=== PATIENT | female | born 1965 | race Caucasian/White ===

== ENCOUNTER 2021-06-21 04:07 | Inpatient (IN) | payer OTHER ==
[2021-06-16 15:15] VITALS: BMI 29.9
[2021-06-21] MEDS ORDERED: ROCURONIUM BROMIDE 50 MG/5 ML SYRINGE ONE ×3 (07:45→14:14)
[2021-06-21] MEDS ORDERED: SUCCINYLCHOLINE CHLORIDE 200 MG/10 ML SYRINGE ONE (07:45)
[2021-06-21] MEDS ORDERED: PROPOFOL 20 ML ONE ×3 (07:45→11:16)
[2021-06-21] MEDS ORDERED: LIDOCAINE HCL/PF 2% SDV 5ML VIAL ONE (07:46)
[2021-06-21] MEDS ORDERED: BUPIVACAINE HCL/PF 0.25% (2.5MG/ML) 10 ML VIAL ONE (08:03)
[2021-06-21] MEDS ORDERED: ISOSULFAN BLUE 50 MG/5 ML VIAL SQ ONE (08:04)
[2021-06-21] MEDS ORDERED: BUPIVACAINE LIPOSOME/PF (EXPAREL) 266 MG/20 ML VIAL ONE (08:04)
[2021-06-21] MEDS ORDERED: HEPARIN NA (PORCINE) 5,000 UNITS/ML 1ML VIAL ONE (08:04)
[2021-06-21] MEDS ORDERED: PAPAVERINE HCL 30 MG/1 ML 10 ML VIAL NR ONE (08:04)
[2021-06-21] MEDS ORDERED: KETAMINE HCL 200 MG/20 ML VIAL ONE (10:56)
[2021-06-21] MEDS ORDERED: MIDAZOLAM HCL 2 MG/2 ML SINGLE DOSE VIAL ONE ×2 (10:56→16:48)
[2021-06-21] MEDS ORDERED: ceFAZolin SODIUM 1 GM VIAL IVPB ONE ×2 (11:05→11:10)
[2021-06-21] MEDS ORDERED: DEXMEDETOMIDINE HCL 200 MCG/2 ML IVPB ONE (11:08)
[2021-06-21] MEDS ORDERED: HYDROmorphone HCl 2 MG/ML VIAL ONE (11:13)
[2021-06-21] MEDS ORDERED: ACETAMINOPHEN INJECTION 100 ML IVPB ONE (13:10)
[2021-06-21] MEDS ORDERED: ePHEDrine SULFATE 50 MG/1 ML AMPULE ONE (14:48)
[2021-06-21] MEDS ORDERED: BUPIVACAINE LIPOSOME/PF (EXPAREL) 266 MG/20 ML VIAL NR ONE (15:31)
[2021-06-21] MEDS ORDERED: BUPIVACAINE HCL/PF 0.25% (2.5MG/ML) 10 ML VIAL IJ ONE (15:31)
[2021-06-21] MEDS ORDERED: DEXTROSE 5%-0.45% SALINE 1,000 ML IV SCH (17:15)
[2021-06-21] MEDS ORDERED: ALBUMIN HUMAN 5% 500 ML IV SOLUTION IV ONE ×2 (18:08→18:11)
[2021-06-21] MEDS ORDERED: ONDANSETRON 4 MG/2 ML VIAL IVPUSH PRN (18:12)
[2021-06-21] MEDS ORDERED: HYDROmorphone HCl 2 MG/ML VIAL IVPUSH PRN ×2 (18:12→18:18)
[2021-06-21] MEDS ORDERED: HYDROmorphone *PCA* 10MG/50ML DISP.SYRIN PCA SCH (18:15)
[2021-06-21] MEDS ORDERED: ACETAMINOPHEN 1000 MG/100 ML BAG IVPB PRN (18:16)
[2021-06-21] MEDS ORDERED: GLYCOPYRROLATE 0.2 MG/1 ML VIAL ONE (18:34)
[2021-06-21] MEDS ORDERED: NEOSTIGMINE METHYLSULFATE 0.5 MG/1 ML - 10 ML MDV ONE (18:34)
[2021-06-21] MEDS ORDERED: CEFAZOLIN 1 GM in DEXTROSE 5%-WATER - 50 ML IVPB SCH (19:00)
[2021-06-21] MEDS: HYDROmorphone *PCA* 10MG/50ML DISP.SYRIN PCA SCH (19:00)
[2021-06-21] MEDS: ceFAZolin 2 GRAM PREMIX BAG IVPB ONE ×2 (19:30→20:01)
[2021-06-21] MEDS ORDERED: ceFAZolin SODIUM 1 GM VIAL ONE (20:09)
[2021-06-21] MEDS ORDERED: ONDANSETRON 4 MG/2 ML VIAL ONE (20:41)
[2021-06-21] MEDS: LACTATED RINGERS SOLUTION 1,000 ML IV SCH (21:00)
[2021-06-21] MEDS ORDERED: PROMETHAZINE HCL 25 MG/1 ML VIAL IVPUSH PRN (21:06)
[2021-06-21] MEDS ORDERED: PROMETHAZINE HCL 25 MG/1 ML VIAL ONE (21:10)
[2021-06-21] MEDS: CHLORHEXIDINE GLUCONATE 4% CLEANSER FOR DECOLONIZATION TP SCH (22:55)
[2021-06-21] MEDS: MUPIROCIN 2% TOPICAL OINTMENT FOR DECOLONIZATION NS SCH (22:55)
[2021-06-21] MEDS: DOCUSATE SODIUM 100 MG CAPSULE (FP) PO SCH (22:55)
[2021-06-22] MEDS ORDERED: ceFAZolin SODIUM 1 GM VIAL ONE ×3 (04:15→20:07)
[2021-06-22] MEDS ORDERED: DEXTROSE 5%-WATER - 50 ML IVPB ONE ×3 (04:16→20:08)
[2021-06-22] MEDS: CEFAZOLIN 1 GM in DEXTROSE 5%-WATER - 50 ML IVPB SCH ×3 (04:35→20:19)
[2021-06-22 07:33] LABS: BASO % 0.1 % (0-2.0); HEMATOCRIT 29.8 % (32.4-45.2); HEMOGLOBIN 9.6 GM/dL (10.7-15.3); LYMPH % 6.7 % (8-40); MCH 26.4 pg (25.7-33.7); MCHC 32.3 g/dl (32.0-36.0); MEAN CELL VOLUME 81.8 fl (80-96); MEAN PLT VOLUME 10.9 fl (7.5-11.1); MONO % 6.4 % (3.8-10.2); NEUT % 86.8 % (42.8-82.8); PLATELET COUNT 190 10^3/uL (134-434); RBC 3.64 M/mm3 (3.60-5.2); RDW 13.9 % (11.6-15.6); WHITE BLOOD COUNT 11.2 K/mm3 (4.0-10.0)
[2021-06-22 07:34] LABS: BLOOD UREA NITROGEN 13.2 mg/dL (7-18); CALCIUM 7.3 mg/dL (8.5-10.1); MAGNESIUM 1.6 mg/dL (1.8-2.4)
[2021-06-22 07:35] LABS: ALBUMIN 2.6 g/dl (3.4-5.0)
[2021-06-22 07:39] LABS: BILIRUBIN,TOTAL 0.5 mg/dL (0.2-1); CREATININE 0.9 mg/dL (0.55-1.3); TOT PROT 5.2 g/dl (6.4-8.2)
[2021-06-22] MEDS: INSULIN SLIDING SCALE (NOVOLOG) 1 VIAL SQ SCH ×4 (07:40→22:15)
[2021-06-22] MEDS ORDERED: DEXTROSE 5%-0.45% SALINE 1,000 ML IV SCH (08:00)
[2021-06-22] MEDS: ASPIRIN 325 MG TABLET PO SCH (10:05)
[2021-06-22] MEDS: ENOXAPARIN NA (PORCINE) 40 MG/0.4 ML DISP.SYRIN SQ SCH (10:05)
[2021-06-22] MEDS: MUPIROCIN 2% TOPICAL OINTMENT FOR DECOLONIZATION NS SCH ×2 (10:06→21:36)
[2021-06-22] MEDS: LACTATED RINGERS SOLUTION 1,000 ML IV SCH ×2 (10:06→19:15)
[2021-06-22] MEDS: DOCUSATE SODIUM 100 MG CAPSULE (FP) PO SCH ×2 (10:06→21:36)
[2021-06-22] MEDS ORDERED: ONDANSETRON 4 MG/2 ML VIAL IVPUSH ONE (11:36)
[2021-06-22] MEDS ORDERED: MAGNESIUM SULFATE IN WATER 2 GM/50 ML IVPB IVPB ONE (13:39)
[2021-06-22] MEDS: HYDROmorphone *PCA* 10MG/50ML DISP.SYRIN PCA SCH (19:15)
[2021-06-22] MEDS: CHLORHEXIDINE GLUCONATE 4% CLEANSER FOR DECOLONIZATION TP SCH (21:36)
[2021-06-23] MEDS: HYDROmorphone *PCA* 10MG/50ML DISP.SYRIN PCA SCH (02:20)
[2021-06-23] MEDS: INSULIN SLIDING SCALE (NOVOLOG) 1 VIAL SQ SCH ×4 (07:08→21:28)
[2021-06-23 07:22] LABS: HEMATOCRIT 26.5 % (32.4-45.2); HEMOGLOBIN 8.7 GM/dL (10.7-15.3); MCH 26.9 pg (25.7-33.7); MCHC 32.7 g/dl (32.0-36.0); MEAN CELL VOLUME 82.1 fl (80-96); MEAN PLT VOLUME 10.2 fl (7.5-11.1); PLATELET COUNT 148 10^3/uL (134-434); RBC 3.23 M/mm3 (3.60-5.2); RDW 13.8 % (11.6-15.6); WHITE BLOOD COUNT 8.3 K/mm3 (4.0-10.0)
[2021-06-23 07:50] LABS: ALBUMIN 2.5 g/dl (3.4-5.0); BLOOD UREA NITROGEN 8.1 mg/dL (7-18); CALCIUM 7.5 mg/dL (8.5-10.1)
[2021-06-23 07:53] LABS: CREATININE 0.6 mg/dL (0.55-1.3)
[2021-06-23 07:55] LABS: BILIRUBIN,TOTAL 0.7 mg/dL (0.2-1); TOT PROT 5.2 g/dl (6.4-8.2)
[2021-06-23] MEDS: ASPIRIN 325 MG TABLET PO SCH (09:27)
[2021-06-23] MEDS: MUPIROCIN 2% TOPICAL OINTMENT FOR DECOLONIZATION NS SCH ×2 (09:27→21:28)
[2021-06-23] MEDS: DOCUSATE SODIUM 100 MG CAPSULE (FP) PO SCH ×2 (09:28→21:28)
[2021-06-23] MEDS: ENOXAPARIN NA (PORCINE) 40 MG/0.4 ML DISP.SYRIN SQ SCH (09:28)
[2021-06-23] MEDS ORDERED: metFORMIN HCL 500 MG TABLET (FP) PO SCH (10:00)
[2021-06-23] MEDS ORDERED: PATIENT'S OWN MEDICATION (NON-FORMULARY) (Sitagliptin Phos/Metformin Hcl [Janumet 50-500 M PO SCH (10:00)
[2021-06-23] MEDS: ATENOLOL 50 MG TABLET (FP) PO SCH (11:55)
[2021-06-23] MEDS: HYDROCHLOROTHIAZIDE 12.5 MG CAPSULE (FP) PO SCH (11:55)
[2021-06-23] MEDS: sitaGLIPtin PHOSPHATE 50 MG TABLET PO SCH (11:55)
[2021-06-23] MEDS: diazePAM 5 MG TABLET PO PRN ×2 (13:34→21:27)
[2021-06-23] MEDS: ONDANSETRON 4 MG/2 ML VIAL IVPUSH PRN (13:34)
[2021-06-23] MEDS ORDERED: LACTATED RINGERS SOLUTION 1,000 ML/1,000 ML INFUS.BAG IV STA (14:47)
[2021-06-23] MEDS: LACTATED RINGERS SOLUTION 1,000 ML IV SCH (20:22)
[2021-06-23] MEDS: oxyCODONE HCL 5 MG TABLET PO PRN (21:27)
[2021-06-23] MEDS: CHLORHEXIDINE GLUCONATE 4% CLEANSER FOR DECOLONIZATION TP SCH (21:28)
[2021-06-24] MEDS: oxyCODONE HCL 5 MG TABLET PO PRN ×5 (02:11→22:01)
[2021-06-24] MEDS: diazePAM 5 MG TABLET PO PRN ×2 (06:12→22:02)
[2021-06-24] MEDS: sitaGLIPtin PHOSPHATE 50 MG TABLET PO SCH (06:12)
[2021-06-24] MEDS: LEVOTHYROXINE NA 88 MCG TABLET (FP) PO SCH (06:13)
[2021-06-24] MEDS: INSULIN SLIDING SCALE (NOVOLOG) 1 VIAL SQ SCH ×4 (06:13→22:02)
[2021-06-24 06:59] LABS: HEMATOCRIT 22.4 % (32.4-45.2); HEMOGLOBIN 7.6 GM/dL (10.7-15.3); MCH 27.4 pg (25.7-33.7); MCHC 33.9 g/dl (32.0-36.0); MEAN CELL VOLUME 80.8 fl (80-96); MEAN PLT VOLUME 9.9 fl (7.5-11.1); PLATELET COUNT 139 10^3/uL (134-434); RBC 2.78 M/mm3 (3.60-5.2); RDW 13.5 % (11.6-15.6); WHITE BLOOD COUNT 7.4 K/mm3 (4.0-10.0)
[2021-06-24 07:26] LABS: CALCIUM 7.1 mg/dL (8.5-10.1)
[2021-06-24 07:27] LABS: BLOOD UREA NITROGEN 5.8 mg/dL (7-18)
[2021-06-24 07:30] LABS: CREATININE 0.4 mg/dL (0.55-1.3)
[2021-06-24] MEDS: ENOXAPARIN NA (PORCINE) 40 MG/0.4 ML DISP.SYRIN SQ SCH (09:46)
[2021-06-24] MEDS: ONDANSETRON 4 MG/2 ML VIAL IVPUSH PRN (09:46)
[2021-06-24] MEDS: ASPIRIN 325 MG TABLET PO SCH (10:13)
[2021-06-24] MEDS: ATENOLOL 50 MG TABLET (FP) PO SCH (10:13)
[2021-06-24] MEDS: DOCUSATE SODIUM 100 MG CAPSULE (FP) PO SCH ×2 (10:14→22:02)
[2021-06-24] MEDS: HYDROCHLOROTHIAZIDE 12.5 MG CAPSULE (FP) PO SCH (10:14)
[2021-06-24] MEDS: MUPIROCIN 2% TOPICAL OINTMENT FOR DECOLONIZATION NS SCH ×2 (12:50→22:01)
[2021-06-24] MEDS ORDERED: ACETAMINOPHEN 325 MG TABLET (FP) PO ONE (13:38)
[2021-06-24] MEDS: CHLORHEXIDINE GLUCONATE 4% CLEANSER FOR DECOLONIZATION TP SCH (22:02)
[2021-06-25 02:08] LABS: BASO % 0.4 % (0-2.0); EOS % 1.9 % (0-4.5); HEMATOCRIT 32.1 % (32.4-45.2); HEMOGLOBIN 11.1 GM/dL (10.7-15.3); LYMPH % 15.4 % (8-40); MCH 28.2 pg (25.7-33.7); MCHC 34.6 g/dl (32.0-36.0); MEAN CELL VOLUME 81.6 fl (80-96); MEAN PLT VOLUME 9.6 fl (7.5-11.1); MONO % 8.3 % (3.8-10.2); PLATELET COUNT 173 10^3/uL (134-434); RBC 3.93 M/mm3 (3.60-5.2); RDW 13.8 % (11.6-15.6); WHITE BLOOD COUNT 7.5 K/mm3 (4.0-10.0)
[2021-06-25] MEDS: INSULIN SLIDING SCALE (NOVOLOG) 1 VIAL SQ SCH ×4 (06:44→21:32)
[2021-06-25] MEDS: oxyCODONE HCL 5 MG TABLET PO PRN (06:44)
[2021-06-25] MEDS: sitaGLIPtin PHOSPHATE 50 MG TABLET PO SCH (06:44)
[2021-06-25] MEDS: diazePAM 5 MG TABLET PO PRN (06:44)
[2021-06-25] MEDS: LEVOTHYROXINE NA 88 MCG TABLET (FP) PO SCH (06:44)
[2021-06-25 07:17] LABS: HEMATOCRIT 33.3 % (32.4-45.2); HEMOGLOBIN 11.6 GM/dL (10.7-15.3); MCH 28.5 pg (25.7-33.7); MCHC 34.7 g/dl (32.0-36.0); MEAN CELL VOLUME 82.2 fl (80-96); MEAN PLT VOLUME 9.8 fl (7.5-11.1); PLATELET COUNT 191 10^3/uL (134-434); RBC 4.05 M/mm3 (3.60-5.2); RDW 13.7 % (11.6-15.6); WHITE BLOOD COUNT 7.8 K/mm3 (4.0-10.0)
[2021-06-25 07:36] LABS: CALCIUM 8.1 mg/dL (8.5-10.1)
[2021-06-25 07:37] LABS: MAGNESIUM 2.2 mg/dL (1.8-2.4)
[2021-06-25 07:38] LABS: ALBUMIN 2.3 g/dl (3.4-5.0); BLOOD UREA NITROGEN 9.4 mg/dL (7-18)
[2021-06-25 07:41] LABS: CREATININE 0.6 mg/dL (0.55-1.3)
[2021-06-25 07:42] LABS: TOT PROT 5.5 g/dl (6.4-8.2)
[2021-06-25 07:45] LABS: BILIRUBIN,TOTAL 1.1 mg/dL (0.2-1)
[2021-06-25] MEDS: MUPIROCIN 2% TOPICAL OINTMENT FOR DECOLONIZATION NS SCH ×2 (09:29→21:43)
[2021-06-25] MEDS: ASPIRIN 325 MG TABLET PO SCH (09:29)
[2021-06-25] MEDS: DOCUSATE SODIUM 100 MG CAPSULE (FP) PO SCH ×2 (09:29→21:32)
[2021-06-25] MEDS: ENOXAPARIN NA (PORCINE) 40 MG/0.4 ML DISP.SYRIN SQ SCH (09:29)
[2021-06-25] MEDS: HYDROCHLOROTHIAZIDE 12.5 MG CAPSULE (FP) PO SCH (09:29)
[2021-06-25] MEDS: ATENOLOL 50 MG TABLET (FP) PO SCH (09:30)
[2021-06-25] MEDS: ACETAMINOPHEN 325 MG TABLET (FP) PO PRN ×2 (12:22→21:31)
[2021-06-25] MEDS: ONDANSETRON 4 MG/2 ML VIAL IVPUSH PRN (13:58)
[2021-06-25] MEDS: CHLORHEXIDINE GLUCONATE 4% CLEANSER FOR DECOLONIZATION TP SCH (22:01)
[2021-06-26] MEDS ORDERED: guaiFENesin 200 MG/10 ML 10 ML UNIT-DOSE CUPS PO ONE (02:14)
[2021-06-26] MEDS: LEVOTHYROXINE NA 88 MCG TABLET (FP) PO SCH (06:11)
[2021-06-26] MEDS: ACETAMINOPHEN 325 MG TABLET (FP) PO PRN ×2 (06:11→16:44)
[2021-06-26] MEDS: sitaGLIPtin PHOSPHATE 50 MG TABLET PO SCH (06:11)
[2021-06-26] MEDS: INSULIN SLIDING SCALE (NOVOLOG) 1 VIAL SQ SCH ×4 (06:22→21:13)
[2021-06-26] MEDS ORDERED: CYCLOBENZAPRINE HCL 5 MG TABLET PO PRN (07:47)
[2021-06-26] MEDS: guaiFENesin 200 MG/10 ML 10 ML UNIT-DOSE CUPS PO PRN (09:13)
[2021-06-26] MEDS: DOCUSATE SODIUM 100 MG CAPSULE (FP) PO SCH ×2 (09:13→21:10)
[2021-06-26] MEDS: ENOXAPARIN NA (PORCINE) 40 MG/0.4 ML DISP.SYRIN SQ SCH (09:14)
[2021-06-26] MEDS: ONDANSETRON 4 MG/2 ML VIAL IVPUSH PRN (09:14)
[2021-06-26] MEDS: ASPIRIN 325 MG TABLET PO SCH (09:14)
[2021-06-26] MEDS: MUPIROCIN 2% TOPICAL OINTMENT FOR DECOLONIZATION NS SCH (09:14)
[2021-06-26] MEDS: ATENOLOL 50 MG TABLET (FP) PO SCH (09:15)
[2021-06-26] MEDS: POLYETHYLENE GLYCOL (HEALTHYLAX) 3350 17 GM PACKET PO SCH ×2 (10:45→21:10)
[2021-06-26] MEDS: ATENOLOL 25 MG TABLET (FP) PO SCH (10:54)
[2021-06-26] MEDS: ACETAMINOPHEN 1000 MG/100 ML BAG IVPB PRN ×2 (13:00→20:52)
[2021-06-26] MEDS ORDERED: INSULIN (NOVOLOG) ASPART 100 UNITS/ML 10ML VIAL ONE (17:05)
[2021-06-26] MEDS: diazePAM 5 MG TABLET PO PRN (17:29)
[2021-06-26] MEDS: CHLORHEXIDINE GLUCONATE 4% CLEANSER FOR DECOLONIZATION TP SCH (21:10)
[2021-06-27] MEDS: INSULIN SLIDING SCALE (NOVOLOG) 1 VIAL SQ SCH ×4 (06:29→22:09)
[2021-06-27] MEDS: LEVOTHYROXINE NA 88 MCG TABLET (FP) PO SCH (06:39)
[2021-06-27] MEDS: sitaGLIPtin PHOSPHATE 50 MG TABLET PO SCH (06:39)
[2021-06-27] MEDS: ACETAMINOPHEN 325 MG TABLET (FP) PO PRN (07:18)
[2021-06-27 09:54] LABS: BASO % 0.6 % (0-2.0); EOS % 2.5 % (0-4.5); HEMATOCRIT 34.1 % (32.4-45.2); HEMOGLOBIN 11.2 GM/dL (10.7-15.3); LYMPH % 14.2 % (8-40); MCH 27.2 pg (25.7-33.7); MCHC 32.7 g/dl (32.0-36.0); MEAN CELL VOLUME 83.3 fl (80-96); MEAN PLT VOLUME 9.4 fl (7.5-11.1); MONO % 7.7 % (3.8-10.2); PLATELET COUNT 228 10^3/uL (134-434); RDW 14.4 % (11.6-15.6); WHITE BLOOD COUNT 5.3 K/mm3 (4.0-10.0)
[2021-06-27] MEDS: ENOXAPARIN NA (PORCINE) 40 MG/0.4 ML DISP.SYRIN SQ SCH (10:06)
[2021-06-27] MEDS: POLYETHYLENE GLYCOL (HEALTHYLAX) 3350 17 GM PACKET PO SCH ×2 (10:07→22:05)
[2021-06-27] MEDS: ASPIRIN 325 MG TABLET PO SCH (10:07)
[2021-06-27] MEDS: ATENOLOL 25 MG TABLET (FP) PO SCH (10:09)
[2021-06-27 10:19] LABS: CALCIUM 8.3 mg/dL (8.5-10.1)
[2021-06-27 10:20] LABS: ALBUMIN 2.3 g/dl (3.4-5.0); MAGNESIUM 2.1 mg/dL (1.8-2.4)
[2021-06-27 10:22] LABS: CREATININE 0.6 mg/dL (0.55-1.3)
[2021-06-27 10:23] LABS: BILIRUBIN,TOTAL 0.5 mg/dL (0.2-1); TOT PROT 5.5 g/dl (6.4-8.2)
[2021-06-27] MEDS: guaiFENesin 200 MG/10 ML 10 ML UNIT-DOSE CUPS PO PRN ×2 (11:21→18:46)
[2021-06-27] MEDS ORDERED: BISACODYL 5 MG TABLET.DR (FP) PO PRN (13:08)
[2021-06-27] MEDS ORDERED: ATENOLOL 50 MG TABLET (FP) PO SCH (13:18)
[2021-06-27] MEDS: ACETAMINOPHEN 1000 MG/100 ML BAG IVPB PRN (19:22)
[2021-06-27] MEDS: DOCUSATE SODIUM 100 MG CAPSULE (FP) PO SCH (22:05)
[2021-06-27] MEDS: CHLORHEXIDINE GLUCONATE 4% CLEANSER FOR DECOLONIZATION TP SCH (22:05)
[2021-06-28] MEDS: ACETAMINOPHEN 325 MG TABLET (FP) PO PRN ×2 (05:28→12:26)
[2021-06-28 05:45] VITALS: TEMP 98.1
[2021-06-28] MEDS: LEVOTHYROXINE NA 88 MCG TABLET (FP) PO SCH (06:04)
[2021-06-28] MEDS: sitaGLIPtin PHOSPHATE 50 MG TABLET PO SCH (06:04)
[2021-06-28] MEDS: INSULIN SLIDING SCALE (NOVOLOG) 1 VIAL SQ SCH ×2 (06:05→11:20)
[2021-06-28 09:04] LABS: HEMATOCRIT 34.5 % (32.4-45.2); HEMOGLOBIN 11.2 GM/dL (10.7-15.3); MCH 27.1 pg (25.7-33.7); MCHC 32.4 g/dl (32.0-36.0); MEAN CELL VOLUME 83.5 fl (80-96); MEAN PLT VOLUME 9.5 fl (7.5-11.1); PLATELET COUNT 240 10^3/uL (134-434); RBC 4.14 M/mm3 (3.60-5.2); RDW 14.2 % (11.6-15.6); WHITE BLOOD COUNT 5.7 K/mm3 (4.0-10.0)
[2021-06-28 09:32] LABS: CALCIUM 8.1 mg/dL (8.5-10.1)
[2021-06-28 09:33] LABS: ALBUMIN 2.4 g/dl (3.4-5.0); BLOOD UREA NITROGEN 10.2 mg/dL (7-18); MAGNESIUM 2.3 mg/dL (1.8-2.4)
[2021-06-28 09:36] LABS: CREATININE 0.5 mg/dL (0.55-1.3)
[2021-06-28 09:37] LABS: BILIRUBIN,TOTAL 0.4 mg/dL (0.2-1); TOT PROT 5.5 g/dl (6.4-8.2)
[2021-06-28] MEDS: ENOXAPARIN NA (PORCINE) 40 MG/0.4 ML DISP.SYRIN SQ SCH (09:46)
[2021-06-28] MEDS: ASPIRIN 325 MG TABLET PO SCH (09:47)
[2021-06-28 09:51] VITALS: BP 132/75; PULSE 82
[2021-06-28 12:29] LABS: ANISOCYTOSIS 0; HELMET CELLS 0; HOWELL-JOLLY BODIES 0; MACROCYTOSIS 0; OVALOCYTE 0; PLATELET ESTIMATE NORMAL; ROULEAU 0; SICKELED CELLS 0; TARGET CELLS 0; TEAR DROP CELLS 0; TOXIC GRANULATION 0
[2021-06-28] MEDS ORDERED: POLYETHYLENE GLYCOL (HEALTHYLAX) 3350 17 GM PACKET PO SCH (14:00)
== END 2021-06-28 14:55 | disposition home health service (06) | DRG 580 ==
LOC: J2C 04:07 → EDSTATUS 08:00 → JICU 21:34 → J8W 06-26 13:51
PROVIDERS: ADMIT Surgery Surgical Oncology; ATTEND Nurse Practitioner Acute Care
PROC: 0HUT07Z Supplement Right Breast with Autologous Tissue Substitute, Open Approach (ICD-10-PCS; 2021-06-21)
PROC: 4A1GXSH Monitoring of Skin and Breast Vascular Perfusion using Indocyanine Green Dye, External Approach (ICD-10-PCS; 2021-06-21)
PROC: 3E0T3BZ Introduction of Anesthetic Agent into Peripheral Nerves and Plexi, Percutaneous Approach (ICD-10-PCS; 2021-06-21)
PROC: 07B50ZX Excision of Right Axillary Lymphatic, Open Approach, Diagnostic (ICD-10-PCS; principal; 2021-06-21 10:30)
PROC: 0HRT077 Replacement of Right Breast using Deep Inferior Epigastric Artery Perforator Flap, Open Approach (ICD-10-PCS; 2021-06-21 10:30)
PROC: 0HTV0ZZ Resection of Bilateral Breast, Open Approach (ICD-10-PCS; 2021-06-21 10:30)
PROC: 30233N1 Transfusion of Nonautologous Red Blood Cells into Peripheral Vein, Percutaneous Approach (ICD-10-PCS; 2021-06-24)
DX: C50.911 Malignant neoplasm of unspecified site of right female breast (principal); D62 Acute posthemorrhagic anemia; E03.9 Hypothyroidism, unspecified; E11.9 Type 2 diabetes mellitus without complications; I10 Essential (primary) hypertension; K59.00 Constipation, unspecified
CPT/HCPCS: 36415; 36430; 71275-TC; 80048; 80053; 81025; 82607; 82728; 82962; 83540; 83550; 83735; 84100; 85025; 85027; 86850; 86900; 86901; 86922; 88307-TC; 88331-TC; 88341-TC; 93005; 93010; 94760; 97116-GP; 97162-GP; J1644; P9058; Q9967

== ENCOUNTER 2021-08-11 04:50 | Day surgery (SDC) | payer OTHER ==
[2021-08-10 09:46] VITALS: BMI 29.9
[2021-08-11] MEDS ORDERED: GENTAMICIN SO4 80 MG/2 ML VIAL ONE (15:37)
[2021-08-11] MEDS ORDERED: oxyCODONE HCL 5 MG TABLET PO PRN (15:54)
[2021-08-11] MEDS ORDERED: ONDANSETRON 4 MG/2 ML VIAL IVPUSH PRN (15:54)
[2021-08-11] MEDS ORDERED: LACTATED RINGERS SOLUTION 1,000 ML IV SCH (16:00)
[2021-08-11] MEDS ORDERED: LIDOCAINE HCL/PF 2% SDV 5ML VIAL ONE (16:10)
[2021-08-11] MEDS ORDERED: PROPOFOL 20 ML ONE (16:11)
[2021-08-11] MEDS ORDERED: ceFAZolin SODIUM 1 GM VIAL ONE (16:22)
[2021-08-11] MEDS ORDERED: ceFAZolin SODIUM 1 GM VIAL IVPB ONE (16:24)
[2021-08-11] MEDS ORDERED: ACETAMINOPHEN 500 MG TABLET (FP) PO ONE (19:00)
[2021-08-11] MEDS ORDERED: HYDROmorphone HCL 2 MG TABLET PO ONE (19:11)
[2021-08-11] MEDS ORDERED: ONDANSETRON *ODT* 4 MG TABLET ONE (20:05)
[2021-08-11 20:47] VITALS: BP 142/74; PULSE 76; TEMP 97.2
== END 2021-08-11 20:59 | disposition home or self-care (01) ==
LOC: JASU-SURG 04:50
PROVIDERS: ATTEND Plastic Surgery
PROC: 0JB60ZZ Excision of Chest Subcutaneous Tissue and Fascia, Open Approach (ICD-10-PCS; 2021-08-11)
PROC: 0HR5X74 Replacement of Chest Skin with Autologous Tissue Substitute, Partial Thickness, External Approach (ICD-10-PCS; 2021-08-11)
PROC: 0HBHXZZ Excision of Right Upper Leg Skin, External Approach (ICD-10-PCS; 2021-08-11)
PROC: 0KBK0ZZ Excision of Right Abdomen Muscle, Open Approach (ICD-10-PCS; 2021-08-11)
PROC: 0JB80ZZ Excision of Abdomen Subcutaneous Tissue and Fascia, Open Approach (ICD-10-PCS; 2021-08-11)
PROC: 0JB60ZZ Excision of Chest Subcutaneous Tissue and Fascia, Open Approach (ICD-10-PCS; principal; 2021-08-11 16:00)
DX: S21.001A Unspecified open wound of right breast, initial encounter (principal); X58.XXXA Exposure to other specified factors, initial encounter; S31.109A Unspecified open wound of abdominal wall, unspecified quadrant without penetration into peritoneal cavity, initial encounter; Y93.9 Activity, unspecified; Y92.9 Unspecified place or not applicable
CPT/HCPCS: 81025; 82962; 88304-TC; 94760; Q0162

== ENCOUNTER 2021-08-24 07:24 | Day surgery (SDC) | payer OTHER ==
[2021-08-24] MEDS ORDERED: LEUPROLIDE ACETATE 3.75 MG/KIT KIT IM ONE (11:00)
[2021-08-24 12:02] LABS: BASO % 0.7 % (0-2.0); EOS % 1.5 % (0-4.5); HEMATOCRIT 42.4 % (32.4-45.2); HEMOGLOBIN 14.1 GM/dL (10.7-15.3); LYMPH % 16.3 % (8-40); MCH 26.9 pg (25.7-33.7); MCHC 33.1 g/dl (32.0-36.0); MEAN CELL VOLUME 81.1 fl (80-96); MEAN PLT VOLUME 9.8 fl (7.5-11.1); MONO % 6.7 % (3.8-10.2); NEUT % 74.8 % (42.8-82.8); PLATELET COUNT 278 10^3/uL (134-434); RBC 5.23 M/mm3 (3.60-5.2); WHITE BLOOD COUNT 8.4 K/mm3 (4.0-10.0)
[2021-08-24 12:21] LABS: CALCIUM 9.7 mg/dL (8.5-10.1)
[2021-08-24 12:22] LABS: BLOOD UREA NITROGEN 15.7 mg/dL (7-18); MAGNESIUM 2.2 mg/dL (1.8-2.4)
[2021-08-24 12:25] LABS: BILIRUBIN,DIRECT 0.1 mg/dL (0.0-0.2); CREATININE 0.9 mg/dL (0.55-1.3)
[2021-08-24 12:26] LABS: BILIRUBIN,TOTAL 0.5 mg/dL (0.2-1); TOT PROT 7.9 g/dl (6.4-8.2)
[2021-08-24 15:47] VITALS: BP 105/82; PULSE 79; TEMP 98.1
[2021-08-26 08:07] LABS: FOLLICLE STIMULATING HORMONE 44.2 mIU/mL (.); LUTEINIZING HORMONE 37.9 mIU/mL (.)
== END 2021-08-24 13:15 | disposition home or self-care (01) ==
LOC: JONCCHEMO 07:24
PROVIDERS: ATTEND Internal Medicine Hematology & Oncology
DX: Z51.11 Encounter for antineoplastic chemotherapy (principal); C50.919 Malignant neoplasm of unspecified site of unspecified female breast
CPT/HCPCS: 36415; 80048; 80076; 82670; 82728; 83001; 83002; 83540; 83550; 83735; 85025; 96402; J1950

== ENCOUNTER 2021-09-22 06:47 | Day surgery (SDC) | payer OTHER ==
[2021-09-22] MEDS ORDERED: LEUPROLIDE ACETATE 3.75 MG/KIT KIT IM ONE (08:30)
[2021-09-22 10:48] LABS: BASO % 1.2 % (0-2.0); EOS % 2.7 % (0-4.5); HEMATOCRIT 39.5 % (32.4-45.2); HEMOGLOBIN 13.2 GM/dL (10.7-15.3); LYMPH % 25.5 % (8-40); MCHC 33.3 g/dl (32.0-36.0); MEAN PLT VOLUME 9.4 fl (7.5-11.1); MONO % 6.7 % (3.8-10.2); NEUT % 63.9 % (42.8-82.8); PLATELET COUNT 256 10^3/uL (134-434); RBC 4.88 M/mm3 (3.60-5.2); RDW 13.9 % (11.6-15.6); WHITE BLOOD COUNT 5.4 K/mm3 (4.0-10.0)
[2021-09-22 11:18] LABS: ALBUMIN 3.8 g/dl (3.4-5.0); CALCIUM 9.3 mg/dL (8.5-10.1)
[2021-09-22 11:19] LABS: BLOOD UREA NITROGEN 15.8 mg/dL (7-18); MAGNESIUM 2.3 mg/dL (1.8-2.4)
[2021-09-22 11:21] LABS: BILIRUBIN,DIRECT 0.1 mg/dL (0.0-0.2)
[2021-09-22 11:22] LABS: CREATININE 0.8 mg/dL (0.55-1.3)
[2021-09-22 11:23] LABS: BILIRUBIN,TOTAL 0.6 mg/dL (0.2-1); TOT PROT 7.2 g/dl (6.4-8.2)
[2021-09-22 13:24] VITALS: BP 122/74; PULSE 67; TEMP 97.4
[2021-09-23 08:07] LABS: FOLLICLE STIMULATING HORMONE 5.2 mIU/mL (.)
== END 2021-09-22 11:00 | disposition home or self-care (01) ==
LOC: JONCCHEMO 06:47
PROVIDERS: ATTEND Internal Medicine Hematology & Oncology
DX: Z51.11 Encounter for antineoplastic chemotherapy (principal); C50.919 Malignant neoplasm of unspecified site of unspecified female breast
CPT/HCPCS: 36415; 80048; 80076; 82378; 82670; 82728; 83001; 83002; 83540; 83550; 83735; 85025; 86300; 96402; J1950

== ENCOUNTER 2021-10-20 06:47 | Day surgery (SDC) | payer OTHER ==
[2021-10-20] MEDS ORDERED: LEUPROLIDE ACETATE 3.75 MG/KIT KIT IM ONE (10:00)
[2021-10-20 14:58] LABS: PH,URINE 6.5 (5.0-8.0); URINE APPEARANCE CLEAR; URINE BILIRUBIN NEGATIVE (NEGATIVE); URINE COLOR YELLOW; URINE GLUCOSE (UA) NEGATIVE (NEGATIVE); URINE KETONE NEGATIVE (NEGATIVE); URINE LEUK ESTERASE NEGATIVE (NEGATIVE); URINE NITRITE NEGATIVE (NEGATIVE); URINE PROTEIN NEGATIVE (NEGATIVE); URINE UROBILINOGEN 0.2 mg/dL (0.2-1.0)
[2021-10-20 15:00] LABS: BASO % 0.8 % (0-2.0); EOS % 2.2 % (0-4.5); HEMATOCRIT 38.6 % (32.4-45.2); HEMOGLOBIN 12.9 GM/dL (10.7-15.3); LYMPH % 23.5 % (8-40); MCH 26.6 pg (25.7-33.7); MCHC 33.4 g/dl (32.0-36.0); MEAN CELL VOLUME 79.6 fl (80-96); MEAN PLT VOLUME 10.1 fl (7.5-11.1); MONO % 7.4 % (3.8-10.2); NEUT % 66.1 % (42.8-82.8); PLATELET COUNT 226 10^3/uL (134-434); RBC 4.85 M/mm3 (3.60-5.2); RDW 13.6 % (11.6-15.6); WHITE BLOOD COUNT 6.4 K/mm3 (4.0-10.0)
[2021-10-20 15:04] LABS: EPI CELLS 8 /uL (0-25.1); HYALINE CASTS 1 /uL (0-3.1); URINE BACTERIA 57 /uL (0-1359); URINE RBC 6 /uL (0-23.9); URINE WBC 7 /uL (0-25.8)
[2021-10-20 15:23] LABS: CALCIUM 9.1 mg/dL (8.5-10.1)
[2021-10-20 15:24] LABS: ALBUMIN 3.6 g/dl (3.4-5.0); BLOOD UREA NITROGEN 18.9 mg/dL (7-18); MAGNESIUM 2.2 mg/dL (1.8-2.4)
[2021-10-20 15:26] LABS: BILIRUBIN,DIRECT 0.1 mg/dL (0.0-0.2)
[2021-10-20 15:28] LABS: BILIRUBIN,TOTAL 0.5 mg/dL (0.2-1); TOT PROT 7.2 g/dl (6.4-8.2)
[2021-10-20 17:17] VITALS: BP 142/75; PULSE 72; TEMP 98.6
[2021-10-22 08:07] LABS: CARCINOEMBRYONIC ANTIGEN 0.8 ng/mL (0.0-4.7); FOLLICLE STIMULATING HORMONE 5.3 mIU/mL (.); LUTEINIZING HORMONE 0.5 mIU/mL (.)
== END 2021-10-20 15:00 | disposition home or self-care (01) ==
LOC: JONCCHEMO 06:47
PROVIDERS: ATTEND Internal Medicine Hematology & Oncology
DX: Z51.11 Encounter for antineoplastic chemotherapy (principal); C50.919 Malignant neoplasm of unspecified site of unspecified female breast
CPT/HCPCS: 36415; 80048; 80076; 81003; 82378; 82670; 83001; 83002; 83735; 85025; 86300; 87086; 96402; J1950

== ENCOUNTER 2021-11-17 06:46 | Day surgery (SDC) | payer OTHER ==
[2021-11-17] MEDS ORDERED: LEUPROLIDE ACETATE 3.75 MG/KIT KIT IM ONE (10:00)
[2021-11-17 13:05] LABS: EOS % 2.1 % (0-4.5); HEMOGLOBIN 13.1 GM/dL (10.7-15.3); LYMPH % 20.2 % (8-40); MCH 26.5 pg (25.7-33.7); MCHC 33.5 g/dl (32.0-36.0); MEAN CELL VOLUME 79.1 fl (80-96); MONO % 7.3 % (3.8-10.2); NEUT % 69.4 % (42.8-82.8); PLATELET COUNT 225 10^3/uL (134-434); RBC 4.93 M/mm3 (3.60-5.2); RDW 13.3 % (11.6-15.6); WHITE BLOOD COUNT 6.1 K/mm3 (4.0-10.0)
[2021-11-17 13:16] LABS: ALBUMIN 3.7 g/dl (3.4-5.0); BLOOD UREA NITROGEN 13.6 mg/dL (7-18); CALCIUM 8.9 mg/dL (8.5-10.1); MAGNESIUM 2.3 mg/dL (1.8-2.4)
[2021-11-17 13:19] LABS: BILIRUBIN,DIRECT 0.1 mg/dL (0.0-0.2); CREATININE 0.7 mg/dL (0.55-1.3)
[2021-11-17 13:20] LABS: BILIRUBIN,TOTAL 0.4 mg/dL (0.2-1)
[2021-11-17 13:21] LABS: TOT PROT 7.1 g/dl (6.4-8.2)
[2021-11-17 16:41] VITALS: BP 125/80; PULSE 66; TEMP 97.5
[2021-11-18 08:08] LABS: FOLLICLE STIMULATING HORMONE 7.1 mIU/mL (.); LUTEINIZING HORMONE 0.7 mIU/mL (.)
== END 2021-11-17 11:40 | disposition home or self-care (01) ==
LOC: JONCCHEMO 06:46
PROVIDERS: ATTEND Internal Medicine Hematology & Oncology
DX: Z51.11 Encounter for antineoplastic chemotherapy (principal); C50.919 Malignant neoplasm of unspecified site of unspecified female breast
CPT/HCPCS: 36415; 80048; 80076; 82378; 82670; 83001; 83002; 83735; 85025; 86300; 96402; J1950

== ENCOUNTER 2021-12-15 06:51 | Day surgery (SDC) | payer OTHER ==
[2021-12-15] MEDS ORDERED: LEUPROLIDE ACETATE 3.75 MG/KIT KIT IM ONE (10:00)
[2021-12-15 11:59] LABS: BASO % 0.8 % (0-2.0); EOS % 1.7 % (0-4.5); HEMATOCRIT 39.8 % (32.4-45.2); HEMOGLOBIN 13.4 GM/dL (10.7-15.3); LYMPH % 21.3 % (8-40); MCH 26.1 pg (25.7-33.7); MCHC 33.7 g/dl (32.0-36.0); MEAN CELL VOLUME 77.5 fl (80-96); MEAN PLT VOLUME 9.3 fl (7.5-11.1); MONO % 7.2 % (3.8-10.2); PLATELET COUNT 230 10^3/uL (134-434); RBC 5.14 M/mm3 (3.60-5.2); RDW 13.4 % (11.6-15.6); WHITE BLOOD COUNT 6.9 K/mm3 (4.0-10.0)
[2021-12-15 12:29] LABS: CALCIUM 9.7 mg/dL (8.5-10.1)
[2021-12-15 12:31] LABS: MAGNESIUM 2.1 mg/dL (1.8-2.4)
[2021-12-15 12:32] LABS: ALBUMIN 3.8 g/dl (3.4-5.0)
[2021-12-15 12:33] LABS: CREATININE 0.8 mg/dL (0.55-1.3)
[2021-12-15 12:34] LABS: BILIRUBIN,DIRECT < 0.1 mg/dL (0.0-0.2); IRON SERUM 80 ug/dL (50-175); SGOT/AST 14 U/L (15-37)
[2021-12-15 12:35] LABS: SGPT/ALT 27 U/L (13-61); TOTAL IRON BINDING CAPACITY 304 ug/dL (250-450)
[2021-12-15 12:36] LABS: BILIRUBIN,TOTAL 0.4 mg/dL (0.2-1); TOT PROT 7.3 g/dl (6.4-8.2)
[2021-12-15 12:37] LABS: ALK PHOS 103 U/L (45-117)
[2021-12-15 15:04] VITALS: BP 151/86; PULSE 66; RESP 16; TEMP 97.8
[2021-12-18 19:08] LABS: FOLLICLE STIMULATING HORMONE 6.5 mIU/mL (.); LUTEINIZING HORMONE 0.4 mIU/mL (.)
== END 2021-12-15 12:30 | disposition home or self-care (01) ==
LOC: JONCCHEMO 06:51
PROVIDERS: ATTEND Internal Medicine Hematology & Oncology
DX: Z51.11 Encounter for antineoplastic chemotherapy (principal); C50.919 Malignant neoplasm of unspecified site of unspecified female breast
CPT/HCPCS: 36415; 80048; 80076; 82306; 82378; 82607; 82670; 82728; 83001; 83002; 83540; 83550; 83735; 84439; 84443; 85025; 86300; 96402; J1950

== ENCOUNTER 2022-01-19 07:35 | Day surgery (SDC) | payer OTHER ==
[2022-01-19] MEDS ORDERED: LEUPROLIDE ACETATE 3.75 MG/KIT KIT IM ONE (10:00)
[2022-01-19 12:19] LABS: HEMATOCRIT 43.4 % (32.4-45.2); HEMOGLOBIN 14.6 GM/dL (10.7-15.3); MCH 26.6 pg (25.7-33.7); MCHC 33.7 g/dl (32.0-36.0); MEAN CELL VOLUME 79.1 fl (80-96); MEAN PLT VOLUME 10.1 fl (7.5-11.1); RBC 5.49 M/mm3 (3.60-5.2); RDW 14.5 % (11.6-15.6)
[2022-01-19 12:22] LABS: WHITE BLOOD COUNT 12.9 K/mm3 (4.0-10.0)
[2022-01-19 12:25] LABS: PLATELET COUNT 215 10^3/uL (134-434)
[2022-01-19 12:38] LABS: BLOOD UREA NITROGEN 11.9 mg/dL (7-18); CALCIUM 9.4 mg/dL (8.5-10.1)
[2022-01-19 12:39] LABS: MAGNESIUM 2.2 mg/dL (1.8-2.4)
[2022-01-19 12:41] LABS: BILIRUBIN,DIRECT 0.1 mg/dL (0.0-0.2)
[2022-01-19 12:42] LABS: BILIRUBIN,TOTAL 0.5 mg/dL (0.2-1); TOT PROT 7.5 g/dl (6.4-8.2)
[2022-01-19 13:16] LABS: ANISOCYTOSIS 2+; MACROCYTOSIS 0; PLATELET ESTIMATE NORMAL
[2022-01-19 16:55] VITALS: BP 140/80; PULSE 64; RESP 18; TEMP 98.2
[2022-01-20 08:06] LABS: FOLLICLE STIMULATING HORMONE 8.2 mIU/mL (.); LUTEINIZING HORMONE < 0.3 mIU/mL (.)
== END 2022-01-19 12:00 | disposition home or self-care (01) ==
LOC: JONCCHEMO 07:35
PROVIDERS: ATTEND Internal Medicine Hematology & Oncology
DX: Z51.11 Encounter for antineoplastic chemotherapy (principal); C50.919 Malignant neoplasm of unspecified site of unspecified female breast
CPT/HCPCS: 36415; 80048; 80076; 82306; 82378; 82607; 82670; 83001; 83002; 83735; 85025; 86300; 96402; J1950

== ENCOUNTER 2022-02-16 08:44 | Day surgery (SDC) | payer OTHER ==
[2022-02-16] MEDS ORDERED: SODIUM CHLORIDE 0.9% 500 ML INFUS.BAG IV ONE (08:46)
[2022-02-16] MEDS ORDERED: LEUPROLIDE ACETATE 3.75 MG/KIT KIT IM ONE (10:00)
[2022-02-16 11:22] LABS: BASO % 0.9 % (0-2.0); EOS % 1.9 % (0-4.5); HEMATOCRIT 41.1 % (32.4-45.2); HEMOGLOBIN 13.2 GM/dL (10.7-15.3); LYMPH % 19.1 % (8-40); MCH 25.6 pg (25.7-33.7); MCHC 32.1 g/dl (32.0-36.0); MEAN CELL VOLUME 79.7 fl (80-96); MONO % 6.2 % (3.8-10.2); NEUT % 71.9 % (42.8-82.8); PLATELET COUNT 235 10^3/uL (134-434); RBC 5.16 M/mm3 (3.60-5.2); RDW 14.4 % (11.6-15.6); WHITE BLOOD COUNT 7.2 K/mm3 (4.0-10.0)
[2022-02-16 11:41] LABS: BLOOD UREA NITROGEN 11.8 mg/dL (7-18); CALCIUM 9.2 mg/dL (8.5-10.1)
[2022-02-16 11:42] LABS: ALBUMIN 3.6 g/dl (3.4-5.0); MAGNESIUM 2.1 mg/dL (1.8-2.4)
[2022-02-16 11:44] LABS: BILIRUBIN,DIRECT 0.1 mg/dL (0.0-0.2)
[2022-02-16 11:45] LABS: CREATININE 0.8 mg/dL (0.55-1.3)
[2022-02-16 11:46] LABS: BILIRUBIN,TOTAL 0.4 mg/dL (0.2-1)
[2022-02-16] MEDS ORDERED: CYANOCOBALAMIN (VITAMIN B-12) 1000 MCG/1 ML VIAL IM ONE (12:22)
[2022-02-16 16:33] VITALS: BP 153/75; PULSE 68; RESP 18; TEMP 98.1
[2022-02-17 10:07] LABS: FOLLICLE STIMULATING HORMONE 6.3 mIU/mL (.); LUTEINIZING HORMONE 0.7 mIU/mL (.)
== END 2022-02-16 13:25 | disposition home or self-care (01) ==
LOC: JONCCHEMO 08:44
PROVIDERS: ATTEND Internal Medicine Hematology & Oncology
PROC: 3E01305 Introduction of Other Antineoplastic into Subcutaneous Tissue, Percutaneous Approach (ICD-10-PCS; principal; 2022-02-16)
PROC: 3E0337Z Introduction of Electrolytic and Water Balance Substance into Peripheral Vein, Percutaneous Approach (ICD-10-PCS; 2022-02-16)
PROC: 3E013GC Introduction of Other Therapeutic Substance into Subcutaneous Tissue, Percutaneous Approach (ICD-10-PCS; 2022-02-16)
PROC: 3E013GC Introduction of Other Therapeutic Substance into Subcutaneous Tissue, Percutaneous Approach (ICD-10-PCS; 2022-02-16)
DX: Z51.11 Encounter for antineoplastic chemotherapy (principal); C50.919 Malignant neoplasm of unspecified site of unspecified female breast
CPT/HCPCS: 36415; 80048; 80076; 82607; 82670; 82977; 83001; 83002; 83735; 85025; 96360; 96372; 96402; J1950

== ENCOUNTER 2022-03-16 11:29 | Day surgery (SDC) | payer OTHER ==
[~2022-03-16 11:29] MED LIST: LEUPROLIDE ACETATE 3.75 MG/KIT KIT IM ONE; ONDANSETRON 4 MG/2 ML VIAL IVPB ONE; SODIUM CHLORIDE 0.9% 500 ML INFUS.BAG IV ONE
[2022-03-16 12:43] LABS: BASO % 0.7 % (0-2.0); EOS % 1.8 % (0-4.5); HEMATOCRIT 39.8 % (32.4-45.2); HEMOGLOBIN 13.5 GM/dL (10.7-15.3); LYMPH % 22.6 % (8-40); MCH 26.5 pg (25.7-33.7); MEAN PLT VOLUME 9.8 fl (7.5-11.1); MONO % 5.5 % (3.8-10.2); NEUT % 69.4 % (42.8-82.8); PLATELET COUNT 249 10^3/uL (134-434); RDW 14.4 % (11.6-15.6)
[2022-03-16 13:03] LABS: CALCIUM 9.4 mg/dL (8.5-10.1)
[2022-03-16 13:04] LABS: ALBUMIN 3.8 g/dl (3.4-5.0); BLOOD UREA NITROGEN 12.2 mg/dL (7-18)
[2022-03-16 13:07] LABS: BILIRUBIN,DIRECT 0.1 mg/dL (0.0-0.2); CREATININE 0.9 mg/dL (0.55-1.3)
[2022-03-16 13:09] LABS: BILIRUBIN,TOTAL 0.5 mg/dL (0.2-1); TOT PROT 7.4 g/dl (6.4-8.2)
[2022-03-16 18:17] VITALS: BP 146/71; PULSE 62; RESP 18; TEMP 98.2
[2022-03-17 08:06] LABS: FOLLICLE STIMULATING HORMONE 6.5 mIU/mL (.); LUTEINIZING HORMONE 0.4 mIU/mL (.)
== END 2022-03-16 13:52 | disposition home or self-care (01) ==
LOC: JONCCHEMO 11:29
PROVIDERS: ATTEND Internal Medicine Hematology & Oncology
PROC: 3E033GC Introduction of Other Therapeutic Substance into Peripheral Vein, Percutaneous Approach (ICD-10-PCS; principal; 2022-03-16)
PROC: 3E01305 Introduction of Other Antineoplastic into Subcutaneous Tissue, Percutaneous Approach (ICD-10-PCS; 2022-03-16)
DX: Z51.11 Encounter for antineoplastic chemotherapy (principal); C50.919 Malignant neoplasm of unspecified site of unspecified female breast
CPT/HCPCS: 36415; 80048; 80076; 82306; 82607; 82670; 83001; 83002; 83735; 85025; 96365; 96402; J1950

== ENCOUNTER 2022-04-20 14:27 | Day surgery (SDC) | payer OTHER ==
[2022-04-20 12:41] LABS: BASO % 1.2 % (0-2.0); EOS % 1.7 % (0-4.5); HEMATOCRIT 40.3 % (32.4-45.2); HEMOGLOBIN 13.2 GM/dL (10.7-15.3); LYMPH % 23.6 % (8-40); MCH 25.7 pg (25.7-33.7); MCHC 32.6 g/dl (32.0-36.0); MEAN CELL VOLUME 78.7 fl (80-96); MEAN PLT VOLUME 9.3 fl (7.5-11.1); MONO % 7.9 % (3.8-10.2); NEUT % 65.6 % (42.8-82.8); PLATELET COUNT 306 10^3/uL (134-434); RBC 5.12 M/mm3 (3.60-5.2); RDW 14.6 % (11.6-15.6); WHITE BLOOD COUNT 7.1 K/mm3 (4.0-10.0)
[2022-04-20 13:07] LABS: ALBUMIN 3.7 g/dl (3.4-5.0); BLOOD UREA NITROGEN 12.8 mg/dL (7-18); MAGNESIUM 2.2 mg/dL (1.8-2.4)
[2022-04-20 13:10] LABS: CREATININE 0.9 mg/dL (0.55-1.3)
[2022-04-20 13:11] LABS: BILIRUBIN,DIRECT 0.1 mg/dL (0.0-0.2); BILIRUBIN,TOTAL 0.4 mg/dL (0.2-1); TOT PROT 7.3 g/dl (6.4-8.2)
[~2022-04-20 14:27] MED LIST changes: -ONDANSETRON 4 MG/2 ML VIAL IVPB ONE; +ONDANSETRON INJECTION 4 MG in SODIUM CHLORIDE 50 ML IVPB ONE; -SODIUM CHLORIDE 0.9% 500 ML INFUS.BAG IV ONE; +SODIUM CHLORIDE 500 ML IV ONE
[2022-04-20 17:33] VITALS: BP 146/82; PULSE 79; RESP 20; TEMP 98.1
== END 2022-04-20 14:45 | disposition home or self-care (01) ==
LOC: JONCCHEMO 14:27
PROVIDERS: ATTEND Internal Medicine Hematology & Oncology
PROC: 3E01305 Introduction of Other Antineoplastic into Subcutaneous Tissue, Percutaneous Approach (ICD-10-PCS; principal; 2022-04-20)
PROC: 3E033GC Introduction of Other Therapeutic Substance into Peripheral Vein, Percutaneous Approach (ICD-10-PCS; 2022-04-20)
DX: Z51.11 Encounter for antineoplastic chemotherapy (principal); C50.919 Malignant neoplasm of unspecified site of unspecified female breast
CPT/HCPCS: 36415; 80048; 80076; 82378; 82607; 82728; 83540; 83550; 83735; 85025; 86300; 96365; 96375; 96402; J1950

== ENCOUNTER 2022-05-18 11:47 | Day surgery (SDC) | payer OTHER ==
[2022-05-18 12:54] LABS: BASO % 0.8 % (0-2.0); EOS % 1.5 % (0-4.5); HEMATOCRIT 40.1 % (32.4-45.2); HEMOGLOBIN 13.2 GM/dL (10.7-15.3); LYMPH % 21.8 % (8-40); MCHC 32.9 g/dl (32.0-36.0); MEAN CELL VOLUME 78.9 fl (80-96); MEAN PLT VOLUME 9.7 fl (7.5-11.1); MONO % 6.1 % (3.8-10.2); NEUT % 69.8 % (42.8-82.8); PLATELET COUNT 253 10^3/uL (134-434); RBC 5.08 M/mm3 (3.60-5.2); RDW 14.4 % (11.6-15.6); WHITE BLOOD COUNT 7.6 K/mm3 (4.0-10.0)
[2022-05-18 13:11] LABS: ALBUMIN 3.8 g/dl (3.4-5.0); BLOOD UREA NITROGEN 10.7 mg/dL (7-18); CALCIUM 9.1 mg/dL (8.5-10.1); MAGNESIUM 2.4 mg/dL (1.8-2.4)
[2022-05-18 13:13] LABS: BILIRUBIN,DIRECT 0.1 mg/dL (0.0-0.2)
[2022-05-18 13:14] LABS: CREATININE 0.8 mg/dL (0.55-1.3)
[2022-05-18 13:15] LABS: TOT PROT 7.4 g/dl (6.4-8.2)
[2022-05-18 13:16] LABS: BILIRUBIN,TOTAL 0.4 mg/dL (0.2-1)
[2022-05-18 18:39] VITALS: BP 144/79; PULSE 74; RESP 18; TEMP 98.1
[2022-05-20 23:11] LABS: CARCINOEMBRYONIC ANTIGEN 1.3 ng/mL (0.0-4.7)
== END 2022-05-18 15:30 | disposition home or self-care (01) ==
LOC: JONCCHEMO 11:47
PROVIDERS: ATTEND Internal Medicine Hematology & Oncology
PROC: 3E013GC Introduction of Other Therapeutic Substance into Subcutaneous Tissue, Percutaneous Approach (ICD-10-PCS; principal; 2022-05-18)
PROC: 3E033GC Introduction of Other Therapeutic Substance into Peripheral Vein, Percutaneous Approach (ICD-10-PCS; 2022-05-18)
DX: Z51.11 Encounter for antineoplastic chemotherapy (principal); C50.919 Malignant neoplasm of unspecified site of unspecified female breast
CPT/HCPCS: 36415; 80048; 80076; 82378; 82607; 82670; 82728; 83516; 83540; 83550; 83735; 85025; 86300; 86340; 96374; 96402; J1950

== ENCOUNTER 2022-06-15 11:30 | Day surgery (SDC) | payer OTHER ==
[2022-06-15] MEDS ORDERED: CYANOCOBALAMIN (VITAMIN B-12) 1000 MCG/1 ML VIAL IM ONE (12:00)
[2022-06-15 12:36] LABS: BASO % 0.8 % (0-2.0); HEMATOCRIT 39.6 % (32.4-45.2); HEMOGLOBIN 13.2 GM/dL (10.7-15.3); LYMPH % 22.6 % (8-40); MCHC 33.3 g/dl (32.0-36.0); MEAN CELL VOLUME 78.2 fl (80-96); MEAN PLT VOLUME 9.7 fl (7.5-11.1); MONO % 5.8 % (3.8-10.2); NEUT % 68.8 % (42.8-82.8); PLATELET COUNT 256 10^3/uL (134-434); RBC 5.07 M/mm3 (3.60-5.2); RDW 14.3 % (11.6-15.6); WHITE BLOOD COUNT 7.1 K/mm3 (4.0-10.0)
[2022-06-15 13:05] LABS: ALBUMIN 3.6 g/dl (3.4-5.0); BLOOD UREA NITROGEN 9.8 mg/dL (7-18); CALCIUM 8.9 mg/dL (8.5-10.1); MAGNESIUM 2.2 mg/dL (1.8-2.4)
[2022-06-15 13:08] LABS: BILIRUBIN,DIRECT 0.1 mg/dL (0.0-0.2); CREATININE 0.7 mg/dL (0.55-1.3)
[2022-06-15 13:10] LABS: BILIRUBIN,TOTAL 0.3 mg/dL (0.2-1); TOT PROT 7.3 g/dl (6.4-8.2)
[2022-06-15 17:24] VITALS: RESP 20; TEMP 98.7
[2022-06-15 17:28] VITALS: BP 132/77; PULSE 79
[2022-06-16 08:07] LABS: CARCINOEMBRYONIC ANTIGEN 1.1 ng/mL (0.0-4.7)
== END 2022-06-15 14:05 | disposition home or self-care (01) ==
LOC: JONCCHEMO 11:30
PROVIDERS: ATTEND Internal Medicine Hematology & Oncology
PROC: 3E01305 Introduction of Other Antineoplastic into Subcutaneous Tissue, Percutaneous Approach (ICD-10-PCS; principal; 2022-06-15)
PROC: 3E0337Z Introduction of Electrolytic and Water Balance Substance into Peripheral Vein, Percutaneous Approach (ICD-10-PCS; 2022-06-15)
DX: Z51.11 Encounter for antineoplastic chemotherapy (principal); C50.919 Malignant neoplasm of unspecified site of unspecified female breast
CPT/HCPCS: 36415; 80048; 80076; 82306; 82378; 82607; 82670; 83036; 83735; 85025; 86300; 96360; 96372; 96402; J1950; J2405

== ENCOUNTER 2022-07-13 13:04 | Day surgery (SDC) | payer OTHER ==
[2022-07-13 13:33] LABS: BASO % 0.7 % (0-2.0); EOS % 2.4 % (0-4.5); HEMOGLOBIN 13.1 GM/dL (10.7-15.3); MCH 26.5 pg (25.7-33.7); MCHC 33.6 g/dl (32.0-36.0); MEAN CELL VOLUME 78.7 fl (80-96); MEAN PLT VOLUME 9.6 fl (7.5-11.1); MONO % 5.8 % (3.8-10.2); NEUT % 67.1 % (42.8-82.8); PLATELET COUNT 245 10^3/uL (134-434); RBC 4.95 M/mm3 (3.60-5.2); RDW 14.4 % (11.6-15.6); WHITE BLOOD COUNT 6.8 K/mm3 (4.0-10.0)
[2022-07-13 13:56] LABS: BLOOD UREA NITROGEN 10.7 mg/dL (7-18); CALCIUM 9.2 mg/dL (8.5-10.1)
[2022-07-13 13:57] LABS: ALBUMIN 3.5 g/dl (3.4-5.0)
[2022-07-13 13:59] LABS: BILIRUBIN,DIRECT 0.1 mg/dL (0.0-0.2); CREATININE 0.9 mg/dL (0.55-1.3)
[2022-07-13 14:00] LABS: BILIRUBIN,TOTAL 0.4 mg/dL (0.2-1)
[2022-07-13 14:01] LABS: TOT PROT 6.9 g/dl (6.4-8.2)
[2022-07-13 17:37] VITALS: PULSE 84; RESP 18; TEMP 97.6
[2022-07-13 17:40] VITALS: BP 134/78
[2022-07-14 08:06] LABS: CARCINOEMBRYONIC ANTIGEN 0.9 ng/mL (0.0-4.7)
== END 2022-07-13 14:50 | disposition home or self-care (01) ==
LOC: JONCCHEMO 13:04
PROVIDERS: ATTEND Internal Medicine Hematology & Oncology
PROC: 3E01305 Introduction of Other Antineoplastic into Subcutaneous Tissue, Percutaneous Approach (ICD-10-PCS; principal; 2022-07-13)
PROC: 3E033GC Introduction of Other Therapeutic Substance into Peripheral Vein, Percutaneous Approach (ICD-10-PCS; 2022-07-13)
DX: Z51.11 Encounter for antineoplastic chemotherapy (principal); C50.411 Malignant neoplasm of upper-outer quadrant of right female breast; Z17.0 Estrogen receptor positive status [ER+]
CPT/HCPCS: 36415; 80048; 80076; 82306; 82378; 82607; 83735; 85025; 86300; 96374; 96402; J1950

== ENCOUNTER 2022-07-14 06:16 | Day surgery (SDC) | payer OTHER ==
[2022-07-06 11:52] VITALS: BMI 27.8
[~2022-07-14 06:16] MED LIST changes: +LACTATED RINGERS SOLUTION 1,000 ML IV SCH; -LEUPROLIDE ACETATE 3.75 MG/KIT KIT IM ONE; +ONDANSETRON 4 MG/2 ML VIAL IVPUSH PRN; -ONDANSETRON INJECTION 4 MG in SODIUM CHLORIDE 50 ML IVPB ONE; -SODIUM CHLORIDE 500 ML IV ONE; +oxyCODONE HCL 5 MG TABLET PO PRN
[2022-07-14] MEDS ORDERED: ACETAMINOPHEN INJECTION 100 ML IVPB ONE ×2 (06:45→12:57)
[2022-07-14] MEDS ORDERED: SCOPOLAMINE HYDROBROMIDE 1 PATCH PATCH.TD72 ONE (06:45)
[2022-07-14] MEDS ORDERED: ONDANSETRON 4 MG/2 ML VIAL ONE (06:52)
[2022-07-14] MEDS ORDERED: PROPOFOL 40 ML ONE (06:52)
[2022-07-14] MEDS ORDERED: LIDOCAINE HCL/PF 2% SDV 5ML VIAL ONE (06:53)
[2022-07-14] MEDS ORDERED: ceFAZolin SODIUM 1 GM VIAL ONE (06:54)
[2022-07-14] MEDS ORDERED: DEXAMETHASONE SOD PHOSPHATE 4 MG/1 ML VIAL ONE (06:59)
[2022-07-14] MEDS ORDERED: SUCCINYLCHOLINE CHLORIDE 200 MG/10 ML SYRINGE ONE (06:59)
[2022-07-14] MEDS ORDERED: ROCURONIUM BROMIDE 50 MG/5 ML SYRINGE ONE (07:01)
[2022-07-14] MEDS ORDERED: MIDAZOLAM HCL 2 MG/2 ML SINGLE DOSE VIAL ONE (07:08)
[2022-07-14] MEDS ORDERED: BUPIVACAINE HCL/PF 0.25% (2.5MG/ML) 10 ML VIAL ONE (07:18)
[2022-07-14] MEDS ORDERED: BUPIVACAINE HCL/PF 2.5 MG/ML - 30 ML VIAL IJ ONE (07:19)
[2022-07-14] MEDS ORDERED: GUM MASTIC/STORAX/MSAL/ALCOHOL 1 DRP DROPSBTL MC ONE (07:19)
[2022-07-14] MEDS ORDERED: ONDANSETRON 4 MG/2 ML VIAL IVPUSH PRN (07:43)
[2022-07-14] MEDS ORDERED: LACTATED RINGERS SOLUTION 1,000 ML IV SCH (07:45)
[2022-07-14] MEDS ORDERED: KETOROLAC TROMETHAMINE 30 MG/1 ML VIAL ONE (08:16)
[2022-07-14] MEDS ORDERED: oxyCODONE HCL 5 MG TABLET PO PRN (12:21)
[2022-07-14] MEDS ORDERED: ACETAMINOPHEN 1000 MG/100 ML BAG IVPB ONE (13:00)
[2022-07-14 14:04] VITALS: RESP 18; TEMP 97.8
[2022-07-14 17:34] VITALS: BP 110/67; PULSE 84
== END 2022-07-14 18:24 | disposition home or self-care (01) ==
LOC: FASU 06:16
PROVIDERS: ATTEND Plastic Surgery
PROC: 0JB60ZZ Excision of Chest Subcutaneous Tissue and Fascia, Open Approach (ICD-10-PCS; principal; 2022-07-14 08:31)
PROC: 0HQU0ZZ Repair Left Breast, Open Approach (ICD-10-PCS; 2022-07-14 08:31)
DX: Z85.3 Personal history of malignant neoplasm of breast (principal); N65.1 Disproportion of reconstructed breast; N63.31 Unspecified lump in axillary tail of the right breast; N63.32 Unspecified lump in axillary tail of the left breast
CPT/HCPCS: 82962; 88305-TC; 94760

== ENCOUNTER 2022-08-17 10:49 | Day surgery (SDC) | payer OTHER ==
[~2022-08-17 10:49] MED LIST changes: -LACTATED RINGERS SOLUTION 1,000 ML IV SCH; +LEUPROLIDE ACETATE 3.75 MG/KIT KIT IM ONE; -ONDANSETRON 4 MG/2 ML VIAL IVPUSH PRN; +ONDANSETRON INJECTION 4 MG in SODIUM CHLORIDE 50 ML IVPB ONE; +SODIUM CHLORIDE 500 ML IV ONE; -oxyCODONE HCL 5 MG TABLET PO PRN
[2022-08-17 11:18] LABS: BASO % 1.1 % (0-2.0); EOS % 3.5 % (0-4.5); HEMATOCRIT 37.8 % (32.4-45.2); HEMOGLOBIN 12.9 GM/dL (10.7-15.3); LYMPH % 26.3 % (8-40); MCH 26.4 pg (25.7-33.7); MCHC 34.2 g/dl (32.0-36.0); MEAN CELL VOLUME 77.2 fl (80-96); MEAN PLT VOLUME 9.7 fl (7.5-11.1); MONO % 6.9 % (3.8-10.2); NEUT % 62.2 % (42.8-82.8); PLATELET COUNT 246 10^3/uL (134-434); RBC 4.89 M/mm3 (3.60-5.2); RDW 14.9 % (11.6-15.6); WHITE BLOOD COUNT 6.7 K/mm3 (4.0-10.0)
[2022-08-17 11:41] LABS: CALCIUM 9.4 mg/dL (8.5-10.1)
[2022-08-17 11:42] LABS: ALBUMIN 3.8 g/dl (3.4-5.0); BLOOD UREA NITROGEN 11.3 mg/dL (7-18); MAGNESIUM 2.2 mg/dL (1.8-2.4)
[2022-08-17 11:44] LABS: BILIRUBIN,DIRECT 0.1 mg/dL (0.0-0.2)
[2022-08-17 11:45] LABS: CREATININE 0.7 mg/dL (0.55-1.3)
[2022-08-17 11:46] LABS: BILIRUBIN,TOTAL 0.4 mg/dL (0.2-1); TOT PROT 7.6 g/dl (6.4-8.2)
[2022-08-17 16:48] VITALS: RESP 18; TEMP 98
[2022-08-17 16:52] VITALS: BP 144/56; PULSE 76
[2022-08-18 08:06] LABS: FOLLICLE STIMULATING HORMONE 7.4 mIU/mL (.); LUTEINIZING HORMONE < 0.3 mIU/mL (.)
== END 2022-08-17 13:30 | disposition home or self-care (01) ==
LOC: JONCCHEMO 10:49
PROVIDERS: ATTEND Internal Medicine Hematology & Oncology
PROC: 3E01305 Introduction of Other Antineoplastic into Subcutaneous Tissue, Percutaneous Approach (ICD-10-PCS; principal; 2022-08-17)
PROC: 3E033GC Introduction of Other Therapeutic Substance into Peripheral Vein, Percutaneous Approach (ICD-10-PCS; 2022-08-17)
DX: Z51.11 Encounter for antineoplastic chemotherapy (principal); C50.411 Malignant neoplasm of upper-outer quadrant of right female breast; Z17.0 Estrogen receptor positive status [ER+]
CPT/HCPCS: 36415; 80048; 80076; 82306; 82378; 82607; 82670; 83001; 83002; 83735; 85025; 86300; 96374; 96402; J1950

== ENCOUNTER 2022-09-14 11:07 | Day surgery (SDC) | payer OTHER ==
[2022-09-14 12:19] LABS: BASO % 1.1 % (0-2.0); EOS % 2.1 % (0-4.5); HEMATOCRIT 39.3 % (32.4-45.2); HEMOGLOBIN 13.1 GM/dL (10.7-15.3); LYMPH % 20.1 % (8-40); MCH 25.6 pg (25.7-33.7); MCHC 33.2 g/dl (32.0-36.0); MEAN PLT VOLUME 10.2 fl (7.5-11.1); MONO % 5.9 % (3.8-10.2); NEUT % 70.8 % (42.8-82.8); PLATELET COUNT 252 10^3/uL (134-434); RBC 5.11 M/mm3 (3.60-5.2); RDW 14.6 % (11.6-15.6); WHITE BLOOD COUNT 6.6 K/mm3 (4.0-10.0)
[2022-09-14 12:44] LABS: POTASSIUM 3.7 mmol/L (3.5-5.1)
[2022-09-14 12:47] LABS: ALBUMIN 3.8 g/dl (3.4-5.0); BLOOD UREA NITROGEN 14.6 mg/dL (7-18); CALCIUM 9.3 mg/dL (8.5-10.1); MAGNESIUM 2.1 mg/dL (1.8-2.4)
[2022-09-14 12:50] LABS: BILIRUBIN,DIRECT 0.1 mg/dL (0.0-0.2); CREATININE 0.8 mg/dL (0.55-1.3)
[2022-09-14 12:53] LABS: BILIRUBIN,TOTAL 0.3 mg/dL (0.2-1); TOT PROT 7.6 g/dl (6.4-8.2)
[2022-09-14 16:44] VITALS: BP 141/98; PULSE 78; RESP 20; TEMP 97.8
[2022-09-15 08:09] LABS: FOLLICLE STIMULATING HORMONE 6.9 mIU/mL (.); LUTEINIZING HORMONE 0.6 mIU/mL (.)
== END 2022-09-14 13:45 | disposition home or self-care (01) ==
LOC: JONCCHEMO 11:07 → J7W 11:09 → JONCCHEMO 13:45
PROVIDERS: ATTEND Internal Medicine Hematology & Oncology
PROC: 3E01305 Introduction of Other Antineoplastic into Subcutaneous Tissue, Percutaneous Approach (ICD-10-PCS; principal; 2022-09-14)
PROC: 3E033GC Introduction of Other Therapeutic Substance into Peripheral Vein, Percutaneous Approach (ICD-10-PCS; 2022-09-14)
PROC: 3E0337Z Introduction of Electrolytic and Water Balance Substance into Peripheral Vein, Percutaneous Approach (ICD-10-PCS; 2022-09-14)
DX: Z51.11 Encounter for antineoplastic chemotherapy (principal)
CPT/HCPCS: 36415; 80048; 80076; 82306; 82378; 82607; 82670; 83001; 83002; 83036; 83735; 85025; 86300; 96374; 96402; J1950

== ENCOUNTER 2022-10-13 11:19 | Day surgery (SDC) | payer OTHER ==
[2022-10-13 12:11] LABS: BASO % 1.1 % (0-2.0); EOS % 2.2 % (0-4.5); HEMATOCRIT 37.4 % (32.4-45.2); HEMOGLOBIN 12.7 GM/dL (10.7-15.3); LYMPH % 23.3 % (8-40); MCH 25.7 pg (25.7-33.7); MCHC 33.9 g/dl (32.0-36.0); MEAN CELL VOLUME 75.8 fl (80-96); MEAN PLT VOLUME 9.9 fl (7.5-11.1); MONO % 5.6 % (3.8-10.2); NEUT % 67.8 % (42.8-82.8); PLATELET COUNT 238 10^3/uL (134-434); RBC 4.94 M/mm3 (3.60-5.2); RDW 14.3 % (11.6-15.6); WHITE BLOOD COUNT 7.1 K/mm3 (4.0-10.0)
[2022-10-13 12:30] LABS: CALCIUM 9.3 mg/dL (8.5-10.1)
[2022-10-13 12:31] LABS: ALBUMIN 3.7 g/dl (3.4-5.0); MAGNESIUM 2.2 mg/dL (1.8-2.4)
[2022-10-13 12:34] LABS: CREATININE 0.8 mg/dL (0.55-1.3)
[2022-10-13 12:35] LABS: BILIRUBIN,DIRECT 0.1 mg/dL (0.0-0.2)
[2022-10-13 12:36] LABS: BILIRUBIN,TOTAL 0.3 mg/dL (0.2-1); TOT PROT 7.4 g/dl (6.4-8.2)
[2022-10-13 18:24] VITALS: BP 131/77; PULSE 68; RESP 20; TEMP 97.6
== END 2022-10-13 13:30 | disposition home or self-care (01) ==
LOC: JONCCHEMO 11:19 → J7W 11:32 → JONCCHEMO 13:30
PROVIDERS: ATTEND Internal Medicine Hematology & Oncology
PROC: 3E01305 Introduction of Other Antineoplastic into Subcutaneous Tissue, Percutaneous Approach (ICD-10-PCS; principal; 2022-10-13)
PROC: 3E033GC Introduction of Other Therapeutic Substance into Peripheral Vein, Percutaneous Approach (ICD-10-PCS; 2022-10-13)
DX: Z51.11 Encounter for antineoplastic chemotherapy (principal); C50.411 Malignant neoplasm of upper-outer quadrant of right female breast
CPT/HCPCS: 36415; 80048; 80076; 82607; 82670; 83001; 83002; 83036; 83735; 84439; 84443; 85025; 96365; 96402; J1950

== ENCOUNTER 2022-12-07 12:27 | Day surgery (SDC) | payer OTHER ==
[2022-12-07 13:07] LABS: BASO % 0.8 % (0-2.0); EOS % 1.9 % (0-4.5); HEMATOCRIT 40.7 % (32.4-45.2); HEMOGLOBIN 13.4 GM/dL (10.7-15.3); LYMPH % 23.4 % (8-40); MCH 24.9 pg (25.7-33.7); MCHC 32.9 g/dl (32.0-36.0); MEAN CELL VOLUME 75.7 fl (80-96); MEAN PLT VOLUME 9.3 fl (7.5-11.1); MONO % 6.3 % (3.8-10.2); NEUT % 67.6 % (42.8-82.8); PLATELET COUNT 268 10^3/uL (134-434); RBC 5.37 M/mm3 (3.60-5.2); RDW 15.2 % (11.6-15.6)
[2022-12-07 13:29] LABS: CALCIUM 9.6 mg/dL (8.5-10.1)
[2022-12-07 13:30] LABS: ALBUMIN 3.9 g/dl (3.4-5.0); BLOOD UREA NITROGEN 14.8 mg/dL (7-18); MAGNESIUM 2.3 mg/dL (1.8-2.4)
[2022-12-07 13:33] LABS: CREATININE 0.9 mg/dL (0.55-1.3)
[2022-12-07 13:34] LABS: BILIRUBIN,TOTAL 0.4 mg/dL (0.2-1)
[2022-12-07 13:35] LABS: TOT PROT 7.7 g/dl (6.4-8.2)
[2022-12-07 17:02] VITALS: BP 126/72; PULSE 73; RESP 20
[2022-12-07 17:03] VITALS: TEMP 98.2
[2022-12-08 07:30] LABS: LUTEINIZING HORMONE 0.6 mIU/mL (.)
== END 2022-12-07 14:40 | disposition home or self-care (01) ==
LOC: JONCCHEMO 12:27 → J7W 12:33 → JONCCHEMO 14:40
PROVIDERS: ATTEND Internal Medicine Hematology & Oncology
PROC: 3E033GC Introduction of Other Therapeutic Substance into Peripheral Vein, Percutaneous Approach (ICD-10-PCS; principal; 2022-12-07)
DX: Z51.11 Encounter for antineoplastic chemotherapy (principal); C50.411 Malignant neoplasm of upper-outer quadrant of right female breast
CPT/HCPCS: 36415; 80053; 82306; 82378; 82607; 82670; 83001; 83002; 83735; 85025; 86300; 96374; 96402; J1950

== ENCOUNTER 2023-01-04 12:38 | Day surgery (SDC) | payer OTHER ==
[2023-01-04 16:31] VITALS: RESP 18; TEMP 98.5
[2023-01-04 16:33] VITALS: BP 150/77; PULSE 74
== END 2023-01-04 14:30 | disposition home or self-care (01) ==
LOC: JONCCHEMO 12:38 → J7W 12:39 → JONCCHEMO 14:30
PROVIDERS: ATTEND Internal Medicine Hematology & Oncology
PROC: 3E02305 Introduction of Other Antineoplastic into Muscle, Percutaneous Approach (ICD-10-PCS; principal; 2023-01-04)
PROC: 3E033GC Introduction of Other Therapeutic Substance into Peripheral Vein, Percutaneous Approach (ICD-10-PCS; 2023-01-04)
DX: Z51.11 Encounter for antineoplastic chemotherapy (principal); C50.411 Malignant neoplasm of upper-outer quadrant of right female breast
CPT/HCPCS: 96365; 96402; J1950

== ENCOUNTER 2023-03-01 10:40 | Day surgery (SDC) | payer OTHER ==
[2023-03-01 11:28] LABS: BASO % 0.8 % (0-2.0); EOS % 2.4 % (0-4.5); HEMATOCRIT 41.6 % (32.4-45.2); HEMOGLOBIN 13.3 GM/dL (10.7-15.3); MCH 25.3 pg (25.7-33.7); MCHC 31.9 g/dl (32.0-36.0); MEAN CELL VOLUME 79.3 fl (80-96); MEAN PLT VOLUME 9.6 fl (7.5-11.1); MONO % 5.8 % (3.8-10.2); PLATELET COUNT 273 10^3/uL (134-434); RBC 5.24 M/mm3 (3.60-5.2); RDW 14.9 % (11.6-15.6); WHITE BLOOD COUNT 7.1 K/mm3 (4.0-10.0)
[2023-03-01 11:45] LABS: CALCIUM 9.3 mg/dL (8.5-10.1)
[2023-03-01 11:46] LABS: ALBUMIN 3.8 g/dl (3.4-5.0); BLOOD UREA NITROGEN 14.8 mg/dL (7-18); MAGNESIUM 2.1 mg/dL (1.8-2.4)
[2023-03-01 11:49] LABS: CREATININE 0.9 mg/dL (0.55-1.3)
[2023-03-01 11:50] LABS: BILIRUBIN,TOTAL 0.4 mg/dL (0.2-1)
[2023-03-01 11:51] LABS: TOT PROT 7.4 g/dl (6.4-8.2)
[2023-03-01 16:39] VITALS: BP 138/63; PULSE 76; RESP 20; TEMP 98
[2023-03-02 10:10] LABS: FOLLICLE STIMULATING HORMONE 7.3 mIU/mL (.); LUTEINIZING HORMONE 0.3 mIU/mL (.)
== END 2023-03-01 11:20 | disposition home or self-care (01) ==
LOC: JONCCHEMO 10:40 → J7W 10:46 → JONCCHEMO 11:20
PROVIDERS: ATTEND Internal Medicine Hematology & Oncology
PROC: 3E01305 Introduction of Other Antineoplastic into Subcutaneous Tissue, Percutaneous Approach (ICD-10-PCS; principal; 2023-03-01)
PROC: 3E033GC Introduction of Other Therapeutic Substance into Peripheral Vein, Percutaneous Approach (ICD-10-PCS; 2023-03-01)
DX: Z51.11 Encounter for antineoplastic chemotherapy (principal); C50.411 Malignant neoplasm of upper-outer quadrant of right female breast; Z17.0 Estrogen receptor positive status [ER+]
CPT/HCPCS: 36415; 80053; 82306; 82378; 82607; 82670; 83001; 83002; 83735; 85025; 86300; 96374; 96402; J1950

== ENCOUNTER 2023-03-29 11:08 | Day surgery (SDC) | payer OTHER ==
[2023-03-29 11:37] LABS: EOS % 1.7 % (0-4.5); HEMATOCRIT 44.8 % (32.4-45.2); HEMOGLOBIN 14.3 GM/dL (10.7-15.3); MCH 25.3 pg (25.7-33.7); MEAN PLT VOLUME 9.2 fl (7.5-11.1); MONO % 6.4 % (3.8-10.2); NEUT % 68.9 % (42.8-82.8); PLATELET COUNT 306 10^3/uL (134-434); RBC 5.67 M/mm3 (3.60-5.2); RDW 14.6 % (11.6-15.6); WHITE BLOOD COUNT 7.6 K/mm3 (4.0-10.0)
[2023-03-29 12:00] LABS: POTASSIUM 3.9 mmol/L (3.5-5.1)
[2023-03-29 12:01] LABS: CALCIUM 9.5 mg/dL (8.5-10.1)
[2023-03-29 12:02] LABS: ALBUMIN 4.1 g/dl (3.4-5.0); BLOOD UREA NITROGEN 14.6 mg/dL (7-18); MAGNESIUM 2.1 mg/dL (1.8-2.4)
[2023-03-29 12:05] LABS: CREATININE 0.9 mg/dL (0.55-1.3)
[2023-03-29 12:07] LABS: BILIRUBIN,TOTAL 0.5 mg/dL (0.2-1); TOT PROT 7.7 g/dl (6.4-8.2)
[2023-03-29 16:16] VITALS: RESP 18; TEMP 98.9
[2023-03-29 16:17] VITALS: BP 140/77; PULSE 83
[2023-03-30 08:06] LABS: FOLLICLE STIMULATING HORMONE 8.3 mIU/mL (.); LUTEINIZING HORMONE 0.4 mIU/mL (.)
== END 2023-03-29 13:35 | disposition home or self-care (01) ==
LOC: JONCCHEMO 11:08 → J7W 11:11 → JONCCHEMO 13:35
PROVIDERS: ATTEND Internal Medicine Hematology & Oncology
PROC: 3E01305 Introduction of Other Antineoplastic into Subcutaneous Tissue, Percutaneous Approach (ICD-10-PCS; principal; 2023-03-29)
PROC: 3E033GC Introduction of Other Therapeutic Substance into Peripheral Vein, Percutaneous Approach (ICD-10-PCS; 2023-03-29)
DX: Z51.11 Encounter for antineoplastic chemotherapy (principal); C50.919 Malignant neoplasm of unspecified site of unspecified female breast
CPT/HCPCS: 36415; 80053; 82306; 82378; 82607; 82670; 83001; 83002; 83735; 85025; 86300; 96374; 96402; J1950; J2405

== ENCOUNTER 2023-04-26 10:30 | Day surgery (SDC) | payer OTHER ==
[2023-04-26 11:33] LABS: EOS % 1.9 % (0-4.5); HEMATOCRIT 42.1 % (32.4-45.2); HEMOGLOBIN 13.7 GM/dL (10.7-15.3); LYMPH % 19.5 % (8-40); MCH 25.5 pg (25.7-33.7); MCHC 32.5 g/dl (32.0-36.0); MEAN CELL VOLUME 78.5 fl (80-96); MEAN PLT VOLUME 9.7 fl (7.5-11.1); MONO % 6.7 % (3.8-10.2); NEUT % 70.9 % (42.8-82.8); PLATELET COUNT 257 10^3/uL (134-434); RBC 5.36 M/mm3 (3.60-5.2); RDW 13.9 % (11.6-15.6)
[2023-04-26 11:39] LABS: POTASSIUM 4.1 mmol/L (3.5-5.1)
[2023-04-26 11:41] LABS: CALCIUM 9.1 mg/dL (8.5-10.1)
[2023-04-26 11:42] LABS: ALBUMIN 3.8 g/dl (3.4-5.0); BLOOD UREA NITROGEN 13.4 mg/dL (7-18)
[2023-04-26 11:45] LABS: CREATININE 0.9 mg/dL (0.55-1.3)
[2023-04-26 11:46] LABS: TOT PROT 7.5 g/dl (6.4-8.2)
[2023-04-26 11:47] LABS: BILIRUBIN,TOTAL 0.4 mg/dL (0.2-1)
[2023-04-26 17:25] VITALS: RESP 18; TEMP 97.8
[2023-04-26 17:30] VITALS: BP 132/68; PULSE 76
[2023-04-27 18:07] LABS: CARCINOEMBRYONIC ANTIGEN 1.2 ng/mL (0.0-4.7); FOLLICLE STIMULATING HORMONE 8.6 mIU/mL (.); LUTEINIZING HORMONE < 0.3 mIU/mL (.)
== END 2023-04-26 14:10 | disposition home or self-care (01) ==
LOC: JONCCHEMO 10:30
PROVIDERS: ATTEND Internal Medicine Hematology & Oncology
PROC: 3E01305 Introduction of Other Antineoplastic into Subcutaneous Tissue, Percutaneous Approach (ICD-10-PCS; principal; 2023-04-26)
PROC: 3E033GC Introduction of Other Therapeutic Substance into Peripheral Vein, Percutaneous Approach (ICD-10-PCS; 2023-04-26)
DX: Z51.11 Encounter for antineoplastic chemotherapy (principal); C50.919 Malignant neoplasm of unspecified site of unspecified female breast
CPT/HCPCS: 36415; 80053; 82306; 82378; 82607; 82670; 83001; 83002; 83735; 85025; 86300; 96365; 96402; J1950; J2405

== ENCOUNTER 2023-05-24 10:57 | Day surgery (SDC) | payer OTHER ==
[~2023-05-24 10:57] MED LIST changes: +CYANOCOBALAMIN (VITAMIN B-12) 1000 MCG/1 ML VIAL IM ONE
[2023-05-24 12:01] LABS: EOS % 2.2 % (0-4.5); HEMATOCRIT 42.9 % (32.4-45.2); LYMPH % 22.5 % (8-40); MCH 25.6 pg (25.7-33.7); MCHC 32.7 g/dl (32.0-36.0); MEAN CELL VOLUME 78.4 fl (80-96); MEAN PLT VOLUME 9.8 fl (7.5-11.1); MONO % 5.8 % (3.8-10.2); NEUT % 68.5 % (42.8-82.8); PLATELET COUNT 256 10^3/uL (134-434); RBC 5.47 M/mm3 (3.60-5.2); RDW 13.9 % (11.6-15.6); WHITE BLOOD COUNT 6.7 K/mm3 (4.0-10.0)
[2023-05-24 12:09] LABS: POTASSIUM 4.3 mmol/L (3.5-5.1)
[2023-05-24 12:11] LABS: ALBUMIN 3.8 g/dl (3.4-5.0); CALCIUM 9.7 mg/dL (8.5-10.1)
[2023-05-24 12:12] LABS: BLOOD UREA NITROGEN 13.2 mg/dL (7-18); MAGNESIUM 2.1 mg/dL (1.8-2.4)
[2023-05-24 12:15] LABS: CREATININE 0.8 mg/dL (0.55-1.3)
[2023-05-24 12:16] LABS: BILIRUBIN,TOTAL 0.3 mg/dL (0.2-1); TOT PROT 7.6 g/dl (6.4-8.2)
[2023-05-24 15:40] VITALS: TEMP 97.8
[2023-05-24 15:42] VITALS: BP 120/69; PULSE 87; RESP 18
[2023-05-25 08:06] LABS: CARCINOEMBRYONIC ANTIGEN 1.1 ng/mL (0.0-4.7); FOLLICLE STIMULATING HORMONE 8.2 mIU/mL (.); LUTEINIZING HORMONE < 0.3 mIU/mL (.)
== END 2023-05-24 13:30 | disposition home or self-care (01) ==
LOC: JONCCHEMO 10:57 → J7W 10:58 → JONCCHEMO 13:30
PROVIDERS: ATTEND Internal Medicine Hematology & Oncology
PROC: 3E01305 Introduction of Other Antineoplastic into Subcutaneous Tissue, Percutaneous Approach (ICD-10-PCS; principal; 2023-05-24)
PROC: 3E033GC Introduction of Other Therapeutic Substance into Peripheral Vein, Percutaneous Approach (ICD-10-PCS; 2023-05-24)
PROC: 3E013GC Introduction of Other Therapeutic Substance into Subcutaneous Tissue, Percutaneous Approach (ICD-10-PCS; 2023-05-24)
DX: Z51.11 Encounter for antineoplastic chemotherapy (principal); C50.919 Malignant neoplasm of unspecified site of unspecified female breast
CPT/HCPCS: 36415; 80053; 82306; 82378; 82607; 82670; 83001; 83002; 83735; 85025; 86038; 86300; 86431; 96365; 96372; 96402; J1950; J2405

== ENCOUNTER 2023-06-21 10:07 | Day surgery (SDC) | payer OTHER ==
[2023-06-21 11:12] LABS: BASO % 1.1 % (0-2.0); EOS % 2.2 % (0-4.5); HEMATOCRIT 40.4 % (32.4-45.2); HEMOGLOBIN 13.2 GM/dL (10.7-15.3); LYMPH % 22.7 % (8-40); MCH 25.5 pg (25.7-33.7); MCHC 32.7 g/dl (32.0-36.0); MEAN CELL VOLUME 77.9 fl (80-96); MEAN PLT VOLUME 9.5 fl (7.5-11.1); MONO % 6.9 % (3.8-10.2); NEUT % 67.1 % (42.8-82.8); PLATELET COUNT 222 10^3/uL (134-434); RBC 5.19 M/mm3 (3.60-5.2); RDW 13.8 % (11.6-15.6); WHITE BLOOD COUNT 7.4 K/mm3 (4.0-10.0)
[2023-06-21 11:30] LABS: POTASSIUM 4.1 mmol/L (3.5-5.1)
[2023-06-21 11:32] LABS: CALCIUM 8.9 mg/dL (8.5-10.1)
[2023-06-21 11:33] LABS: ALBUMIN 3.6 g/dl (3.4-5.0)
[2023-06-21 11:36] LABS: CREATININE 0.8 mg/dL (0.55-1.3)
[2023-06-21 11:37] LABS: BILIRUBIN,TOTAL 0.3 mg/dL (0.2-1); TOT PROT 7.1 g/dl (6.4-8.2)
[2023-06-21] MEDS: SODIUM CHLORIDE 500 ML IV ONE (11:37)
[2023-06-21] MEDS: ONDANSETRON INJECTION 4 MG in SODIUM CHLORIDE 50 ML IVPB ONE (12:38)
[2023-06-21] MEDS: LEUPROLIDE ACETATE 3.75 MG/KIT KIT IM ONE (12:39)
[2023-06-21 15:30] VITALS: RESP 18; TEMP 98.5
[2023-06-21 15:34] VITALS: BP 128/74; PULSE 74
[2023-06-22 08:07] LABS: CARCINOEMBRYONIC ANTIGEN 1.1 ng/mL (0.0-4.7); FOLLICLE STIMULATING HORMONE 8.4 mIU/mL (.); LUTEINIZING HORMONE 0.4 mIU/mL (.)
== END 2023-06-21 13:15 | disposition home or self-care (01) ==
LOC: JONCCHEMO 10:07 → J7W 10:11 → JONCCHEMO 13:15
PROVIDERS: ATTEND Internal Medicine Hematology & Oncology
PROC: 3E02305 Introduction of Other Antineoplastic into Muscle, Percutaneous Approach (ICD-10-PCS; principal; 2023-06-21)
PROC: 3E033GC Introduction of Other Therapeutic Substance into Peripheral Vein, Percutaneous Approach (ICD-10-PCS; 2023-06-21)
DX: Z51.11 Encounter for antineoplastic chemotherapy (principal); C50.919 Malignant neoplasm of unspecified site of unspecified female breast
CPT/HCPCS: 36415; 80053; 82306; 82378; 82607; 82670; 83001; 83002; 83735; 85025; 86300; 96374; 96402; J1950; J2405

== ENCOUNTER 2023-07-19 11:12 | Day surgery (SDC) | payer OTHER ==
[2023-07-19 12:29] LABS: BASO % 1.1 % (0-2.0); EOS % 1.7 % (0-4.5); HEMATOCRIT 42.8 % (32.4-45.2); HEMOGLOBIN 14.2 GM/dL (10.7-15.3); MCH 26.1 pg (25.7-33.7); MCHC 33.2 g/dl (32.0-36.0); MEAN CELL VOLUME 78.8 fl (80-96); MEAN PLT VOLUME 10.3 fl (7.5-11.1); MONO % 6.4 % (3.8-10.2); NEUT % 64.8 % (42.8-82.8); PLATELET COUNT 249 10^3/uL (134-434); RBC 5.43 M/mm3 (3.60-5.2); RDW 14.2 % (11.6-15.6); WHITE BLOOD COUNT 6.3 K/mm3 (4.0-10.0)
[2023-07-19] MEDS: SODIUM CHLORIDE 500 ML IV ONE (12:39)
[2023-07-19] MEDS: ONDANSETRON INJECTION 4 MG in SODIUM CHLORIDE 50 ML IVPB ONE (12:52)
[2023-07-19 12:54] LABS: POTASSIUM 4.1 mmol/L (3.5-5.1)
[2023-07-19 12:58] LABS: ALBUMIN 3.8 g/dl (3.4-5.0); BLOOD UREA NITROGEN 12.8 mg/dL (7-18); CALCIUM 9.3 mg/dL (8.5-10.1); MAGNESIUM 2.2 mg/dL (1.8-2.4)
[2023-07-19 13:01] LABS: CREATININE 0.8 mg/dL (0.55-1.3)
[2023-07-19 13:03] LABS: BILIRUBIN,TOTAL 0.3 mg/dL (0.2-1); TOT PROT 7.6 g/dl (6.4-8.2)
[2023-07-19] MEDS: LEUPROLIDE ACETATE 3.75 MG/KIT KIT IM ONE (13:42)
[2023-07-19 15:07] VITALS: RESP 18; TEMP 98.4
[2023-07-19 15:29] VITALS: BP 118/74; PULSE 68
[2023-07-21 08:15] LABS: CARCINOEMBRYONIC ANTIGEN 1.2 ng/mL (0.0-4.7); FOLLICLE STIMULATING HORMONE 8.5 mIU/mL (.); LUTEINIZING HORMONE < 0.3 mIU/mL (.)
== END 2023-07-19 14:25 | disposition home or self-care (01) ==
LOC: J7W 11:12 → JONCCHEMO 11:12
PROVIDERS: ATTEND Internal Medicine Hematology & Oncology
PROC: 3E01305 Introduction of Other Antineoplastic into Subcutaneous Tissue, Percutaneous Approach (ICD-10-PCS; principal; 2023-07-19)
PROC: 3E033GC Introduction of Other Therapeutic Substance into Peripheral Vein, Percutaneous Approach (ICD-10-PCS; 2023-07-19)
DX: Z51.11 Encounter for antineoplastic chemotherapy (principal); C50.919 Malignant neoplasm of unspecified site of unspecified female breast
CPT/HCPCS: 36415; 80053; 82306; 82378; 82607; 82670; 83001; 83002; 83735; 85025; 86300; 96365; 96375; 96401; J1950; J2405

== ENCOUNTER 2023-08-16 10:54 | Day surgery (SDC) | payer OTHER ==
[2023-08-16 11:45] LABS: BASO % 0.9 % (0-2.0); EOS % 1.8 % (0-4.5); HEMATOCRIT 41.6 % (32.4-45.2); HEMOGLOBIN 13.5 GM/dL (10.7-15.3); MCH 25.6 pg (25.7-33.7); MCHC 32.5 g/dl (32.0-36.0); MEAN CELL VOLUME 78.8 fl (80-96); MEAN PLT VOLUME 10.1 fl (7.5-11.1); MONO % 5.6 % (3.8-10.2); NEUT % 68.7 % (42.8-82.8); PLATELET COUNT 223 10^3/uL (134-434); RBC 5.28 M/mm3 (3.60-5.2); RDW 14.1 % (11.6-15.6)
[2023-08-16 12:07] LABS: POTASSIUM 4.2 mmol/L (3.5-5.1)
[2023-08-16 12:10] LABS: CALCIUM 9.5 mg/dL (8.5-10.1)
[2023-08-16 12:12] LABS: ALBUMIN 4.1 g/dl (3.4-5.0); BLOOD UREA NITROGEN 11.6 mg/dL (7-18); CREATININE 0.9 mg/dL (0.55-1.3); MAGNESIUM 2.2 mg/dL (1.8-2.4)
[2023-08-16 12:14] LABS: BILIRUBIN,TOTAL 0.5 mg/dL (0.2-1); TOT PROT 8.2 g/dl (6.4-8.2)
[2023-08-16] MEDS: ONDANSETRON INJECTION 4 MG in SODIUM CHLORIDE 50 ML IVPB ONE (12:30)
[2023-08-16] MEDS: SODIUM CHLORIDE 500 ML IV ONE (12:31)
[2023-08-16] MEDS: LEUPROLIDE ACETATE 3.75 MG/KIT KIT IM ONE (13:48)
[2023-08-17 01:47] VITALS: BP 144/72; PULSE 71; RESP 20; TEMP 98.3
[2023-08-17 08:10] LABS: CARCINOEMBRYONIC ANTIGEN 1.2 ng/mL (0.0-4.7); FOLLICLE STIMULATING HORMONE 8.1 mIU/mL (.); LUTEINIZING HORMONE < 0.3 mIU/mL (.)
== END 2023-08-16 14:00 | disposition home or self-care (01) ==
LOC: JONCCHEMO 10:54 → J7W 11:08 → JONCCHEMO 14:00
PROVIDERS: ATTEND Internal Medicine Hematology & Oncology
PROC: 3E033GC Introduction of Other Therapeutic Substance into Peripheral Vein, Percutaneous Approach (ICD-10-PCS; principal; 2023-08-16)
DX: C50.919 Malignant neoplasm of unspecified site of unspecified female breast (principal); Z76.89 Persons encountering health services in other specified circumstances
CPT/HCPCS: 36415; 80053; 82306; 82378; 82607; 82670; 83001; 83002; 83036; 83735; 85025; 86300; 96372; 96374; J1950; J2405

== ENCOUNTER 2023-09-13 10:28 | Day surgery (SDC) | payer OTHER ==
[2023-09-13 11:13] VITALS: BP 132/66; PULSE 73; RESP 18; TEMP 98.2
[2023-09-13] MEDS: ONDANSETRON INJECTION 4 MG in SODIUM CHLORIDE 50 ML IVPB ONE (11:19)
[2023-09-13 11:21] LABS: BASO % 1.1 % (0-2.0); EOS % 2.1 % (0-4.5); HEMATOCRIT 41.8 % (32.4-45.2); HEMOGLOBIN 13.8 GM/dL (10.7-15.3); LYMPH % 21.2 % (8-40); MEAN CELL VOLUME 78.7 fl (80-96); MEAN PLT VOLUME 9.9 fl (7.5-11.1); MONO % 6.2 % (3.8-10.2); NEUT % 69.4 % (42.8-82.8); PLATELET COUNT 254 10^3/uL (134-434); RBC 5.31 M/mm3 (3.60-5.2); RDW 14.3 % (11.6-15.6); WHITE BLOOD COUNT 7.3 K/mm3 (4.0-10.0)
[2023-09-13] MEDS: LEUPROLIDE ACETATE 3.75 MG/KIT KIT IM ONE (11:22)
[2023-09-13] MEDS: SODIUM CHLORIDE 500 ML IV ONE (11:22)
[2023-09-13 11:34] LABS: POTASSIUM 4.4 mmol/L (3.5-5.1)
[2023-09-13 11:37] LABS: ALBUMIN 3.7 g/dl (3.4-5.0); BLOOD UREA NITROGEN 11.6 mg/dL (7-18); CALCIUM 9.7 mg/dL (8.5-10.1)
[2023-09-13 11:38] LABS: MAGNESIUM 2.2 mg/dL (1.8-2.4)
[2023-09-13 11:40] LABS: CREATININE 0.8 mg/dL (0.55-1.3)
[2023-09-13 11:42] LABS: BILIRUBIN,TOTAL 0.4 mg/dL (0.2-1); TOT PROT 7.5 g/dl (6.4-8.2)
[2023-09-14 08:10] LABS: CARCINOEMBRYONIC ANTIGEN 1.3 ng/mL (0.0-4.7); FOLLICLE STIMULATING HORMONE 8.3 mIU/mL (.); LUTEINIZING HORMONE < 0.3 mIU/mL (.)
== END 2023-09-13 11:40 | disposition home or self-care (01) ==
LOC: JONCCHEMO 10:28 → J7W 10:29 → JONCCHEMO 11:40
PROVIDERS: ATTEND Internal Medicine Hematology & Oncology
PROC: 3E013GC Introduction of Other Therapeutic Substance into Subcutaneous Tissue, Percutaneous Approach (ICD-10-PCS; principal; 2023-09-13)
PROC: 3E033GC Introduction of Other Therapeutic Substance into Peripheral Vein, Percutaneous Approach (ICD-10-PCS; 2023-09-13)
DX: C50.919 Malignant neoplasm of unspecified site of unspecified female breast (principal)
CPT/HCPCS: 36415; 80053; 82306; 82378; 82607; 82670; 83001; 83002; 83735; 85025; 86300; 96365; 96372; J1950; J2405

== ENCOUNTER 2023-10-11 10:46 | Day surgery (SDC) | payer OTHER ==
[2023-10-11 11:49] LABS: BASO % 1.1 % (0-2.0); EOS % 1.5 % (0-4.5); HEMATOCRIT 41.6 % (32.4-45.2); HEMOGLOBIN 13.6 GM/dL (10.7-15.3); MCH 25.9 pg (25.7-33.7); MCHC 32.8 g/dl (32.0-36.0); MEAN PLT VOLUME 9.6 fl (7.5-11.1); MONO % 6.5 % (3.8-10.2); NEUT % 66.9 % (42.8-82.8); PLATELET COUNT 248 10^3/uL (134-434); RBC 5.27 M/mm3 (3.60-5.2); RDW 14.1 % (11.6-15.6); WHITE BLOOD COUNT 7.3 K/mm3 (4.0-10.0)
[2023-10-11] MEDS: SODIUM CHLORIDE 500 ML IV ONE (11:58)
[2023-10-11 12:10] LABS: CHLORIDE 101 mmol/L (98-107); POTASSIUM 3.9 mmol/L (3.5-5.1); SODIUM 134 mmol/L (136-145)
[2023-10-11 12:12] LABS: ALBUMIN 3.7 g/dl (3.4-5.0); ANION GAP 4 mmol/L (4-13); BLOOD UREA NITROGEN 12.1 mg/dL (7-18); CALCIUM 9.1 mg/dL (8.5-10.1); CO2 28 mmol/L (21-32); GLUCOSE,RANDOM 185 mg/dL (74-106); MAGNESIUM 2.2 mg/dL (1.8-2.4)
[2023-10-11 12:15] LABS: CREATININE 0.9 mg/dL (0.55-1.3); SGOT/AST 12 U/L (15-37); SGPT/ALT 23 U/L (13-61)
[2023-10-11 12:16] LABS: BILIRUBIN,TOTAL 0.4 mg/dL (0.2-1); TOT PROT 7.4 g/dl (6.4-8.2)
[2023-10-11 12:17] LABS: ALK PHOS 143 U/L (45-117)
[2023-10-11] MEDS: ONDANSETRON INJECTION 4 MG in SODIUM CHLORIDE 50 ML IVPB ONE (12:22)
[2023-10-11] MEDS: CYANOCOBALAMIN (VITAMIN B-12) 1000 MCG/1 ML VIAL IM ONE (13:40)
[2023-10-11] MEDS: LEUPROLIDE ACETATE 3.75 MG/KIT KIT IM ONE (13:41)
[2023-10-11 14:10] VITALS: PULSE 68; RESP 20; TEMP 98
[2023-10-11 14:21] VITALS: BP 136/68
[2023-10-12 10:08] LABS: CARCINOEMBRYONIC ANTIGEN 1.3 ng/mL (0.0-4.7); FOLLICLE STIMULATING HORMONE 7.7 mIU/mL (.); LUTEINIZING HORMONE < 0.3 mIU/mL (.)
== END 2023-10-11 13:45 | disposition home or self-care (01) ==
LOC: JONCCHEMO 10:46 → J7W 10:47 → JONCCHEMO 13:45
PROVIDERS: ATTEND Internal Medicine Hematology & Oncology
PROC: 3E01305 Introduction of Other Antineoplastic into Subcutaneous Tissue, Percutaneous Approach (ICD-10-PCS; principal; 2023-10-11)
PROC: 3E0337Z Introduction of Electrolytic and Water Balance Substance into Peripheral Vein, Percutaneous Approach (ICD-10-PCS; 2023-10-11)
PROC: 3E033GC Introduction of Other Therapeutic Substance into Peripheral Vein, Percutaneous Approach (ICD-10-PCS; 2023-10-11)
DX: Z51.11 Encounter for antineoplastic chemotherapy (principal); C50.919 Malignant neoplasm of unspecified site of unspecified female breast
CPT/HCPCS: 36415; 80053; 82306; 82378; 82607; 82670; 83001; 83002; 83735; 85025; 86300; 96361; 96372; 96374; 96402; J1950; J2405

== ENCOUNTER 2023-11-08 10:58 | Day surgery (SDC) | payer OTHER ==
[2023-11-08 11:20] LABS: BASO % 1.1 % (0-2.0); EOS % 2.1 % (0-4.5); HEMATOCRIT 40.9 % (32.4-45.2); HEMOGLOBIN 13.6 GM/dL (10.7-15.3); MCH 26.1 pg (25.7-33.7); MCHC 33.3 g/dl (32.0-36.0); MEAN CELL VOLUME 78.4 fl (80-96); MEAN PLT VOLUME 9.7 fl (7.5-11.1); MONO % 6.4 % (3.8-10.2); NEUT % 66.4 % (42.8-82.8); PLATELET COUNT 220 10^3/uL (134-434); RBC 5.22 M/mm3 (3.60-5.2); WHITE BLOOD COUNT 6.8 K/mm3 (4.0-10.0)
[2023-11-08] MEDS: SODIUM CHLORIDE 500 ML IV ONE (11:41)
[2023-11-08 11:42] LABS: CHLORIDE 101 mmol/L (98-107); POTASSIUM 3.7 mmol/L (3.5-5.1); SODIUM 135 mmol/L (136-145)
[2023-11-08 11:45] LABS: ALBUMIN 3.8 g/dl (3.4-5.0); ANION GAP 6 mmol/L (4-13); BLOOD UREA NITROGEN 10.4 mg/dL (7-18); CALCIUM 9.4 mg/dL (8.5-10.1); CO2 28 mmol/L (21-32); GLUCOSE,RANDOM 168 mg/dL (74-106); MAGNESIUM 2.1 mg/dL (1.8-2.4)
[2023-11-08 11:48] LABS: CREATININE 0.9 mg/dL (0.55-1.3); SGOT/AST 15 U/L (15-37); SGPT/ALT 25 U/L (13-61)
[2023-11-08 11:49] LABS: BILIRUBIN,TOTAL 0.4 mg/dL (0.2-1); TOT PROT 7.1 g/dl (6.4-8.2)
[2023-11-08 11:50] LABS: ALK PHOS 133 U/L (45-117)
[2023-11-08] MEDS: ONDANSETRON INJECTION 4 MG in SODIUM CHLORIDE 50 ML IVPB ONE (12:12)
[2023-11-08] MEDS: LEUPROLIDE ACETATE 3.75 MG/KIT KIT IM ONE (12:44)
[2023-11-08 13:57] VITALS: TEMP 98.4
[2023-11-08 14:02] VITALS: BP 137/76; PULSE 73; RESP 18
[2023-11-09 08:11] LABS: CARCINOEMBRYONIC ANTIGEN 1.3 ng/mL (0.0-4.7)
[2023-11-09 10:10] LABS: FOLLICLE STIMULATING HORMONE 7.8 mIU/mL (.); LUTEINIZING HORMONE < 0.3 mIU/mL (.)
== END 2023-11-08 14:05 | disposition home or self-care (01) ==
LOC: JONCCHEMO 10:58 → J7W 10:58 → JONCCHEMO 14:05
PROVIDERS: ATTEND Internal Medicine Hematology & Oncology
PROC: 3E033GC Introduction of Other Therapeutic Substance into Peripheral Vein, Percutaneous Approach (ICD-10-PCS; principal; 2023-11-08)
DX: C50.919 Malignant neoplasm of unspecified site of unspecified female breast (principal)
CPT/HCPCS: 36415; 80053; 82306; 82378; 82607; 82670; 83001; 83002; 83735; 85025; 86300; 96372; 96374; J1950; J2405

== ENCOUNTER 2023-12-06 10:18 | Day surgery (SDC) | payer OTHER ==
[2023-12-06] MEDS: SODIUM CHLORIDE 500 ML IV ONE (10:55)
[2023-12-06 11:14] LABS: BASO % 0.9 % (0-2.0); EOS % 1.8 % (0-4.5); HEMATOCRIT 40.5 % (32.4-45.2); HEMOGLOBIN 13.9 GM/dL (10.7-15.3); LYMPH % 22.8 % (8-40); MCH 26.5 pg (25.7-33.7); MCHC 34.4 g/dl (32.0-36.0); MEAN PLT VOLUME 9.8 fl (7.5-11.1); MONO % 6.1 % (3.8-10.2); NEUT % 68.4 % (42.8-82.8); PLATELET COUNT 229 10^3/uL (134-434); RBC 5.25 M/mm3 (3.60-5.2); WHITE BLOOD COUNT 7.3 K/mm3 (4.0-10.0)
[2023-12-06] MEDS: ONDANSETRON INJECTION 4 MG in SODIUM CHLORIDE 50 ML IVPB ONE (11:20)
[2023-12-06 11:25] VITALS: TEMP 98.3
[2023-12-06 11:41] LABS: POTASSIUM 4.1 mmol/L (3.5-5.1)
[2023-12-06 11:43] LABS: ALBUMIN 3.8 g/dl (3.4-5.0); BLOOD UREA NITROGEN 14.1 mg/dL (7-18); CALCIUM 9.2 mg/dL (8.5-10.1)
[2023-12-06 11:47] LABS: CREATININE 0.9 mg/dL (0.55-1.3)
[2023-12-06 11:48] LABS: BILIRUBIN,TOTAL 0.6 mg/dL (0.2-1); TOT PROT 7.5 g/dl (6.4-8.2)
[2023-12-06] MEDS: LEUPROLIDE ACETATE 3.75 MG/KIT KIT IM ONE (11:59)
[2023-12-06 15:10] VITALS: BP 139/75; PULSE 75; RESP 20
[2023-12-07 08:11] LABS: CARCINOEMBRYONIC ANTIGEN 1.1 ng/mL (0.0-4.7); FOLLICLE STIMULATING HORMONE 8.3 mIU/mL (.); LUTEINIZING HORMONE < 0.3 mIU/mL (.)
== END 2023-12-06 12:50 | disposition home or self-care (01) ==
LOC: JONCCHEMO 10:18 → J7W 10:19 → JONCCHEMO 12:50
PROVIDERS: ATTEND Internal Medicine Hematology & Oncology
PROC: 3E013GC Introduction of Other Therapeutic Substance into Subcutaneous Tissue, Percutaneous Approach (ICD-10-PCS; principal; 2023-12-06)
PROC: 3E033GC Introduction of Other Therapeutic Substance into Peripheral Vein, Percutaneous Approach (ICD-10-PCS; 2023-12-06)
DX: C50.411 Malignant neoplasm of upper-outer quadrant of right female breast (principal); Z17.0 Estrogen receptor positive status [ER+]
CPT/HCPCS: 36415; 80053; 82306; 82378; 82607; 82670; 83001; 83002; 83735; 85025; 86300; 96365; 96375; J1950; J2405

== ENCOUNTER 2024-01-03 11:08 | Emergency (ER) | payer OTHER ==
[2024-01-03 11:14] VITALS: BP 120/75; PULSE 89; RESP 18; TEMP 97.7; BMI 28.0
== END 2024-01-03 13:38 | disposition home or self-care (01) ==
LOC: JERFT 11:08
DX: R09.81 Nasal congestion (principal); J00 Acute nasopharyngitis [common cold]; R05.9 Cough, unspecified; H92.01 Otalgia, right ear; Z20.822 Contact with and (suspected) exposure to COVID-19
CPT/HCPCS: 0241U-QW; 99283-25

== ENCOUNTER 2024-01-03 13:38 | Day surgery (SDC) | payer OTHER ==
[~2024-01-03 13:38] MED LIST changes: -CYANOCOBALAMIN (VITAMIN B-12) 1000 MCG/1 ML VIAL IM ONE
[2024-01-03 14:36] LABS: BASO % 0.8 % (0-2.0); EOS % 2.8 % (0-4.5); HEMATOCRIT 44.2 % (32.4-45.2); HEMOGLOBIN 14.7 GM/dL (10.7-15.3); LYMPH % 23.7 % (8-40); MCH 25.9 pg (25.7-33.7); MCHC 33.2 g/dl (32.0-36.0); MEAN CELL VOLUME 77.8 fl (80-96); MEAN PLT VOLUME 9.7 fl (7.5-11.1); MONO % 6.8 % (3.8-10.2); NEUT % 65.9 % (42.8-82.8); PLATELET COUNT 279 10^3/uL (134-434); RBC 5.68 M/mm3 (3.60-5.2); RDW 14.4 % (11.6-15.6); WHITE BLOOD COUNT 7.3 K/mm3 (4.0-10.0)
[2024-01-03] MEDS: SODIUM CHLORIDE 500 ML IV ONE (14:52)
[2024-01-03 14:56] VITALS: RESP 18; TEMP 97.4
[2024-01-03 15:03] LABS: POTASSIUM 3.5 mmol/L (3.5-5.1)
[2024-01-03 15:05] LABS: ALBUMIN 4.1 g/dl (3.4-5.0); CALCIUM 9.5 mg/dL (8.5-10.1)
[2024-01-03 15:06] LABS: MAGNESIUM 2.4 mg/dL (1.8-2.4)
[2024-01-03 15:10] LABS: CREATININE 0.9 mg/dL (0.55-1.3)
[2024-01-03 15:11] LABS: BILIRUBIN,TOTAL 0.4 mg/dL (0.2-1); TOT PROT 8.1 g/dl (6.4-8.2)
[2024-01-03] MEDS: ONDANSETRON INJECTION 4 MG in SODIUM CHLORIDE 50 ML IVPB ONE (15:20)
[2024-01-03] MEDS: LEUPROLIDE ACETATE 3.75 MG/KIT KIT IM ONE (16:11)
[2024-01-03 16:27] VITALS: BP 137/71; PULSE 72
[2024-01-05 08:11] LABS: CARCINOEMBRYONIC ANTIGEN 1.1 ng/mL (0.0-4.7); FOLLICLE STIMULATING HORMONE 7.7 mIU/mL (.); LUTEINIZING HORMONE < 0.3 mIU/mL (.)
== END 2024-01-03 16:20 | disposition home or self-care (01) ==
LOC: JONCCHEMO 13:38 → J7W 13:49 → JONCCHEMO 16:20
PROVIDERS: ATTEND Internal Medicine Hematology & Oncology
PROC: 3E033GC Introduction of Other Therapeutic Substance into Peripheral Vein, Percutaneous Approach (ICD-10-PCS; principal; 2024-01-03)
DX: C50.411 Malignant neoplasm of upper-outer quadrant of right female breast (principal)
CPT/HCPCS: 36415; 80053; 82306; 82378; 82607; 82670; 83001; 83002; 83735; 85025; 86300; 96372; 96374; J1950; J2405

== ENCOUNTER 2024-01-31 10:50 | Day surgery (SDC) | payer OTHER ==
[2024-01-31] MEDS: SODIUM CHLORIDE 500 ML IV ONE (11:19)
[2024-01-31 11:25] LABS: BASO % 1.2 % (0-2.0); EOS % 2.2 % (0-4.5); HEMATOCRIT 41.5 % (32.4-45.2); HEMOGLOBIN 13.8 GM/dL (10.7-15.3); LYMPH % 24.3 % (8-40); MCH 25.7 pg (25.7-33.7); MCHC 33.3 g/dl (32.0-36.0); MEAN CELL VOLUME 77.1 fl (80-96); MEAN PLT VOLUME 9.9 fl (7.5-11.1); MONO % 6.8 % (3.8-10.2); NEUT % 65.5 % (42.8-82.8); PLATELET COUNT 232 10^3/uL (134-434); RBC 5.39 M/mm3 (3.60-5.2); RDW 14.3 % (11.6-15.6); WHITE BLOOD COUNT 6.4 K/mm3 (4.0-10.0)
[2024-01-31 11:46] LABS: CHLORIDE 101 mmol/L (98-107); POTASSIUM 4.3 mmol/L (3.5-5.1); SODIUM 137 mmol/L (136-145)
[2024-01-31 11:48] LABS: ANION GAP 8 mmol/L (4-13); CALCIUM 9.7 mg/dL (8.5-10.1); CO2 28 mmol/L (21-32); GLUCOSE,RANDOM 197 mg/dL (74-106); MAGNESIUM 2.2 mg/dL (1.8-2.4)
[2024-01-31 11:49] LABS: ALBUMIN 3.8 g/dl (3.4-5.0)
[2024-01-31 11:51] LABS: SGPT/ALT 22 U/L (13-61)
[2024-01-31 11:52] LABS: CREATININE 0.8 mg/dL (0.55-1.3); SGOT/AST 13 U/L (15-37)
[2024-01-31 11:53] LABS: BILIRUBIN,TOTAL 0.5 mg/dL (0.2-1); TOT PROT 7.2 g/dl (6.4-8.2)
[2024-01-31 11:54] LABS: ALK PHOS 140 U/L (45-117)
[2024-01-31] MEDS: ONDANSETRON INJECTION 4 MG in SODIUM CHLORIDE 50 ML IVPB ONE (11:56)
[2024-01-31] MEDS: LEUPROLIDE ACETATE 3.75 MG/KIT KIT IM ONE (12:29)
[2024-01-31 14:38] LABS: GAMMA GLUTAMYL TRANSPEPTIDASE 58 U/L (5-85)
[2024-01-31 16:55] VITALS: BP 140/76; PULSE 68; RESP 20; TEMP 98
[2024-02-01 08:12] LABS: LUTEINIZING HORMONE < 0.3 mIU/mL (.)
[2024-02-01 17:08] LABS: MITOCHONDRIAL AB <20.0 Units (0.0-20.0)
== END 2024-01-31 12:40 | disposition home or self-care (01) ==
LOC: JONCCHEMO 10:50 → J7W 10:51 → JONCCHEMO 12:40
PROVIDERS: ATTEND Internal Medicine Hematology & Oncology
PROC: 3E02305 Introduction of Other Antineoplastic into Muscle, Percutaneous Approach (ICD-10-PCS; principal; 2024-01-31)
PROC: 3E0337Z Introduction of Electrolytic and Water Balance Substance into Peripheral Vein, Percutaneous Approach (ICD-10-PCS; 2024-01-31)
PROC: 3E033GC Introduction of Other Therapeutic Substance into Peripheral Vein, Percutaneous Approach (ICD-10-PCS; 2024-01-31)
DX: Z51.11 Encounter for antineoplastic chemotherapy (principal); C50.411 Malignant neoplasm of upper-outer quadrant of right female breast
CPT/HCPCS: 36415; 80053; 82306; 82378; 82607; 82670; 82977; 83001; 83002; 83516; 83735; 84080; 85025; 86300; 96365; 96402; J1950; J2405

== ENCOUNTER 2024-03-06 10:59 | Day surgery (SDC) | payer OTHER ==
[2024-03-06 11:27] LABS: BASO % 1.1 % (0-2.0); EOS % 2.6 % (0-4.5); HEMATOCRIT 40.6 % (32.4-45.2); HEMOGLOBIN 13.6 GM/dL (10.7-15.3); LYMPH % 20.6 % (8-40); MCH 25.9 pg (25.7-33.7); MCHC 33.6 g/dl (32.0-36.0); MEAN CELL VOLUME 77.3 fl (80-96); MEAN PLT VOLUME 9.8 fl (7.5-11.1); MONO % 5.8 % (3.8-10.2); NEUT % 69.9 % (42.8-82.8); PLATELET COUNT 237 10^3/uL (134-434); RBC 5.26 M/mm3 (3.60-5.2); RDW 14.2 % (11.6-15.6); WHITE BLOOD COUNT 6.3 K/mm3 (4.0-10.0)
[2024-03-06] MEDS: SODIUM CHLORIDE 500 ML IV ONE (11:45)
[2024-03-06 11:55] LABS: CHLORIDE 100 mmol/L (98-107); POTASSIUM 3.5 mmol/L (3.5-5.1); SODIUM 135 mmol/L (136-145)
[2024-03-06 11:58] LABS: ALBUMIN 3.7 g/dl (3.4-5.0); ANION GAP 8 mmol/L (4-13); CO2 27 mmol/L (21-32); GLUCOSE,RANDOM 354 mg/dL (74-106)
[2024-03-06 12:01] LABS: CREATININE 1.2 mg/dL (0.55-1.3); SGOT/AST 12 U/L (15-37); SGPT/ALT 25 U/L (13-61)
[2024-03-06 12:02] LABS: BILIRUBIN,TOTAL 0.5 mg/dL (0.2-1)
[2024-03-06 12:04] LABS: ALK PHOS 139 U/L (45-117)
[2024-03-06] MEDS: WATER IVPB ONE (12:17)
[2024-03-06] MEDS: DEXTROSE 5% IVPB ONE (12:17)
[2024-03-06] MEDS: ONDANSETRON IVPB ONE (12:17)
[2024-03-06] MEDS: LEUPROLIDE ACETATE 3.75 MG/KIT KIT IM ONE (13:07)
[2024-03-06] MEDS: INSULIN (NOVOLOG) ASPART 100 UNITS/ML 10ML VIAL SQ ONE (13:15)
[2024-03-06 14:40] VITALS: RESP 18; TEMP 98.4
[2024-03-06 14:43] VITALS: BP 136/77; PULSE 79
[2024-03-07 08:11] LABS: CARCINOEMBRYONIC ANTIGEN 1.3 ng/mL (0.0-4.7); FOLLICLE STIMULATING HORMONE 8.4 mIU/mL (.); LUTEINIZING HORMONE < 0.3 mIU/mL (.)
== END 2024-03-06 13:30 | disposition home or self-care (01) ==
LOC: JONCCHEMO 10:59 → J7W 11:16 → JONCCHEMO 13:30
PROVIDERS: ATTEND Internal Medicine Hematology & Oncology
PROC: 3E013VG Introduction of Insulin into Subcutaneous Tissue, Percutaneous Approach (ICD-10-PCS; principal; 2024-03-06)
PROC: 3E0337Z Introduction of Electrolytic and Water Balance Substance into Peripheral Vein, Percutaneous Approach (ICD-10-PCS; 2024-03-06)
PROC: 3E01305 Introduction of Other Antineoplastic into Subcutaneous Tissue, Percutaneous Approach (ICD-10-PCS; 2024-03-06)
DX: C50.411 Malignant neoplasm of upper-outer quadrant of right female breast (principal); Z17.0 Estrogen receptor positive status [ER+]
CPT/HCPCS: 36415; 80053; 82306; 82378; 82607; 82670; 83001; 83002; 83735; 85025; 86300; 96365; 96372; 96402; J1950

== ENCOUNTER 2024-04-03 11:52 | Day surgery (SDC) | payer OTHER ==
[2024-04-03 12:25] LABS: BASO % 0.6 % (0-2.0); EOS % 1.3 % (0-4.5); HEMATOCRIT 42.8 % (32.4-45.2); HEMOGLOBIN 14.4 GM/dL (10.7-15.3); LYMPH % 16.6 % (8-40); MCHC 33.6 g/dl (32.0-36.0); MEAN CELL VOLUME 77.4 fl (80-96); MEAN PLT VOLUME 9.6 fl (7.5-11.1); MONO % 5.9 % (3.8-10.2); NEUT % 75.6 % (42.8-82.8); PLATELET COUNT 262 10^3/uL (134-434); RBC 5.53 M/mm3 (3.60-5.2); RDW 14.1 % (11.6-15.6); WHITE BLOOD COUNT 8.6 K/mm3 (4.0-10.0)
[2024-04-03] MEDS: ONDANSETRON INJECTION 4 MG in SODIUM CHLORIDE 50 ML IVPB ONE (12:27)
[2024-04-03] MEDS: SODIUM CHLORIDE 500 ML IV ONE (12:29)
[2024-04-03 13:13] VITALS: TEMP 98.2
[2024-04-03 13:23] LABS: CHLORIDE 98 mmol/L (98-107); POTASSIUM 3.9 mmol/L (3.5-5.1); SODIUM 139 mmol/L (136-145)
[2024-04-03 13:25] LABS: ALBUMIN 3.9 g/dl (3.4-5.0); ANION GAP 13 mmol/L (4-13); BLOOD UREA NITROGEN 12.2 mg/dL (7-18); CALCIUM 9.8 mg/dL (8.5-10.1); CO2 27 mmol/L (21-32); GLUCOSE,RANDOM 171 mg/dL (74-106)
[2024-04-03 13:28] LABS: SGOT/AST 13 U/L (15-37)
[2024-04-03 13:29] LABS: SGPT/ALT 30 U/L (13-61)
[2024-04-03 13:30] LABS: BILIRUBIN,TOTAL 0.5 mg/dL (0.2-1); TOT PROT 7.4 g/dl (6.4-8.2)
[2024-04-03 13:31] LABS: ALK PHOS 122 U/L (45-117)
[2024-04-03] MEDS: LEUPROLIDE ACETATE 3.75 MG/KIT KIT IM ONE (14:05)
[2024-04-03 15:05] VITALS: BP 147/82; PULSE 69; RESP 18
[2024-04-04 08:14] LABS: CARCINOEMBRYONIC ANTIGEN 1.2 ng/mL (0.0-4.7)
== END 2024-04-03 14:20 | disposition home or self-care (01) ==
LOC: JONCCHEMO 11:52 → J7W 11:53 → JONCCHEMO 14:20
PROVIDERS: ATTEND Internal Medicine Hematology & Oncology
PROC: 3E023GC Introduction of Other Therapeutic Substance into Muscle, Percutaneous Approach (ICD-10-PCS; principal; 2024-04-03)
PROC: 3E033GC Introduction of Other Therapeutic Substance into Peripheral Vein, Percutaneous Approach (ICD-10-PCS; 2024-04-03)
DX: C50.411 Malignant neoplasm of upper-outer quadrant of right female breast (principal); Z17.0 Estrogen receptor positive status [ER+]; Z76.89 Persons encountering health services in other specified circumstances
CPT/HCPCS: 36415; 80053; 82306; 82378; 82607; 82670; 83735; 85025; 86300; 96372; 96374; J1950

== ENCOUNTER 2024-05-01 11:02 | Day surgery (SDC) | payer OTHER ==
[2024-05-01 11:31] LABS: BASO % 0.7 % (0-2.0); EOS % 2.6 % (0-4.5); HEMATOCRIT 41.8 % (32.4-45.2); HEMOGLOBIN 13.7 GM/dL (10.7-15.3); LYMPH % 22.8 % (8-40); MCH 25.7 pg (25.7-33.7); MCHC 32.9 g/dl (32.0-36.0); MEAN CELL VOLUME 78.3 fl (80-96); MEAN PLT VOLUME 9.9 fl (7.5-11.1); NEUT % 67.9 % (42.8-82.8); PLATELET COUNT 257 10^3/uL (134-434); RBC 5.34 M/mm3 (3.60-5.2); RDW 14.2 % (11.6-15.6); WHITE BLOOD COUNT 6.7 K/mm3 (4.0-10.0)
[2024-05-01 11:50] LABS: CHLORIDE 104 mmol/L (98-107); POTASSIUM 4.5 mmol/L (3.5-5.1); SODIUM 138 mmol/L (136-145)
[2024-05-01] MEDS: SODIUM CHLORIDE 500 ML IV ONE (11:50)
[2024-05-01] MEDS: ONDANSETRON INJECTION 4 MG in SODIUM CHLORIDE 50 ML IVPB ONE (11:51)
[2024-05-01 11:52] LABS: CALCIUM 9.7 mg/dL (8.5-10.1)
[2024-05-01 11:53] LABS: ALBUMIN 3.8 g/dl (3.4-5.0); ANION GAP 5 mmol/L (4-13); BLOOD UREA NITROGEN 10.7 mg/dL (7-18); CO2 29 mmol/L (21-32); GLUCOSE,RANDOM 149 mg/dL (74-106); MAGNESIUM 2.1 mg/dL (1.8-2.4)
[2024-05-01 11:56] LABS: CREATININE 0.9 mg/dL (0.55-1.3); SGOT/AST 19 U/L (15-37); SGPT/ALT 32 U/L (13-61)
[2024-05-01 11:57] LABS: BILIRUBIN,TOTAL 0.5 mg/dL (0.2-1); TOT PROT 7.2 g/dl (6.4-8.2)
[2024-05-01 11:59] LABS: ALK PHOS 110 U/L (45-117)
[2024-05-01] MEDS: LEUPROLIDE ACETATE 3.75 MG/KIT KIT IM ONE (12:45)
[2024-05-01 13:38] VITALS: RESP 20; TEMP 98.1
[2024-05-01 13:41] VITALS: BP 129/73; PULSE 77
[2024-05-02 15:07] LABS: CARCINOEMBRYONIC ANTIGEN 1.1 ng/mL (0.0-4.7)
== END 2024-05-01 13:00 | disposition home or self-care (01) ==
LOC: JONCCHEMO 11:02 → J7W 11:03 → JONCCHEMO 13:00
PROVIDERS: ATTEND Internal Medicine Hematology & Oncology
PROC: 3E033GC Introduction of Other Therapeutic Substance into Peripheral Vein, Percutaneous Approach (ICD-10-PCS; principal; 2024-05-01)
PROC: 3E013GC Introduction of Other Therapeutic Substance into Subcutaneous Tissue, Percutaneous Approach (ICD-10-PCS; 2024-05-01)
DX: C50.411 Malignant neoplasm of upper-outer quadrant of right female breast (principal); Z17.0 Estrogen receptor positive status [ER+]; Z76.89 Persons encountering health services in other specified circumstances
CPT/HCPCS: 36415; 80053; 82306; 82378; 82607; 82670; 83735; 85025; 86300; 96372; 96374; J1950

== ENCOUNTER 2024-05-29 10:35 | Day surgery (SDC) | payer OTHER ==
[~2024-05-29 10:35] MED LIST changes: -LEUPROLIDE ACETATE 3.75 MG/KIT KIT IM ONE; -ONDANSETRON INJECTION 4 MG in SODIUM CHLORIDE 50 ML IVPB ONE; +SODIUM CHLORIDE 250 ML IV ONE; -SODIUM CHLORIDE 500 ML IV ONE
[2024-05-29] MEDS: SODIUM CHLORIDE 500 ML IV ONE (10:50)
[2024-05-29] MEDS: ONDANSETRON INJECTION 4 MG in SODIUM CHLORIDE 50 ML IVPB ONE (10:50)
[2024-05-29 11:02] LABS: BASO % 0.7 % (0-2.0); EOS % 1.1 % (0-4.5); HEMOGLOBIN 14.9 GM/dL (10.7-15.3); MCH 25.3 pg (25.7-33.7); MCHC 31.8 g/dl (32.0-36.0); MEAN CELL VOLUME 79.6 fl (80-96); MEAN PLT VOLUME 9.6 fl (7.5-11.1); MONO % 5.6 % (3.8-10.2); NEUT % 78.6 % (42.8-82.8); PLATELET COUNT 256 10^3/uL (134-434); RDW 14.4 % (11.6-15.6); WHITE BLOOD COUNT 9.1 K/mm3 (4.0-10.0)
[2024-05-29 11:18] LABS: CHLORIDE 99 mmol/L (98-107); POTASSIUM 3.9 mmol/L (3.5-5.1); SODIUM 135 mmol/L (136-145)
[2024-05-29 11:20] LABS: ALBUMIN 4.2 g/dl (3.4-5.0); ANION GAP 9 mmol/L (4-13); CALCIUM 9.8 mg/dL (8.5-10.1); CO2 28 mmol/L (21-32)
[2024-05-29 11:21] LABS: BLOOD UREA NITROGEN 18.8 mg/dL (7-18); GLUCOSE,RANDOM 178 mg/dL (74-106)
[2024-05-29 11:24] LABS: CREATININE 0.9 mg/dL (0.55-1.3); SGOT/AST 13 U/L (15-37); SGPT/ALT 26 U/L (13-61)
[2024-05-29 11:25] LABS: BILIRUBIN,TOTAL 0.6 mg/dL (0.2-1); TOT PROT 7.8 g/dl (6.4-8.2)
[2024-05-29 11:27] LABS: ALK PHOS 133 U/L (45-117)
[2024-05-29] MEDS: LEUPROLIDE ACETATE 3.75 MG/KIT KIT IM ONE (11:56)
[2024-05-29 13:15] VITALS: BP 134/80; PULSE 79; RESP 18; TEMP 97.9
[2024-05-30 23:07] LABS: CARCINOEMBRYONIC ANTIGEN 1.5 ng/mL (0.0-4.7)
== END 2024-05-29 12:15 | disposition home or self-care (01) ==
LOC: JONCCHEMO 10:35 → J7W 10:36 → JONCCHEMO 12:15
PROVIDERS: ATTEND Internal Medicine Hematology & Oncology
PROC: 3E033GC Introduction of Other Therapeutic Substance into Peripheral Vein, Percutaneous Approach (ICD-10-PCS; principal; 2024-05-29)
PROC: 3E013GC Introduction of Other Therapeutic Substance into Subcutaneous Tissue, Percutaneous Approach (ICD-10-PCS; 2024-05-29)
DX: C50.411 Malignant neoplasm of upper-outer quadrant of right female breast (principal); Z17.0 Estrogen receptor positive status [ER+]
CPT/HCPCS: 36415; 80053; 82306; 82378; 82607; 82670; 83735; 85025; 86300; 96365; 96372; J1950; J2405

== ENCOUNTER 2024-06-26 13:13 | Day surgery (SDC) | payer OTHER ==
[2024-06-26] MEDS: ONDANSETRON INJECTION 4 MG in SODIUM CHLORIDE 50 ML IVPB ONE (13:45)
[2024-06-26] MEDS: SODIUM CHLORIDE 500 ML IV ONE (13:45)
[2024-06-26 13:50] LABS: BASO % 0.8 % (0-2.0); EOS % 2.1 % (0-4.5); HEMATOCRIT 41.3 % (32.4-45.2); HEMOGLOBIN 13.8 GM/dL (10.7-15.3); LYMPH % 24.6 % (8-40); MCH 26.3 pg (25.7-33.7); MCHC 33.5 g/dl (32.0-36.0); MEAN CELL VOLUME 78.6 fl (80-96); MEAN PLT VOLUME 9.7 fl (7.5-11.1); MONO % 7.3 % (3.8-10.2); NEUT % 65.2 % (42.8-82.8); PLATELET COUNT 226 10^3/uL (134-434); RBC 5.25 M/mm3 (3.60-5.2); RDW 14.2 % (11.6-15.6)
[2024-06-26 14:07] LABS: CHLORIDE 100 mmol/L (98-107); POTASSIUM 3.7 mmol/L (3.5-5.1); SODIUM 135 mmol/L (136-145)
[2024-06-26 14:09] LABS: ALBUMIN 4.2 g/dl (3.4-5.0); CALCIUM 9.4 mg/dL (8.5-10.1)
[2024-06-26 14:10] LABS: ANION GAP 8 mmol/L (4-13); BLOOD UREA NITROGEN 15.1 mg/dL (7-18); CO2 28 mmol/L (21-32); GLUCOSE,RANDOM 141 mg/dL (74-106); MAGNESIUM 1.8 mg/dL (1.8-2.4)
[2024-06-26 14:13] LABS: CREATININE 0.8 mg/dL (0.55-1.3); SGOT/AST 13 U/L (15-37); SGPT/ALT 25 U/L (13-61)
[2024-06-26 14:14] LABS: BILIRUBIN,TOTAL 0.5 mg/dL (0.2-1); TOT PROT 7.6 g/dl (6.4-8.2)
[2024-06-26 14:15] LABS: ALK PHOS 123 U/L (45-117)
[2024-06-26] MEDS: LEUPROLIDE ACETATE 3.75 MG/KIT KIT IM ONE (14:48)
[2024-06-26 17:47] VITALS: RESP 20; TEMP 98.1
[2024-06-26 17:54] VITALS: BP 136/78; PULSE 85
== END 2024-06-26 15:00 | disposition home or self-care (01) ==
LOC: JONCCHEMO 13:13 → J7W 13:13 → JONCCHEMO 15:00
PROVIDERS: ATTEND Internal Medicine Hematology & Oncology
PROC: 3E033GC Introduction of Other Therapeutic Substance into Peripheral Vein, Percutaneous Approach (ICD-10-PCS; principal; 2024-06-26)
PROC: 3E013GC Introduction of Other Therapeutic Substance into Subcutaneous Tissue, Percutaneous Approach (ICD-10-PCS; 2024-06-26)
DX: C50.919 Malignant neoplasm of unspecified site of unspecified female breast (principal)
CPT/HCPCS: 36415; 80053; 82306; 82378; 82607; 82670; 83735; 85025; 86300; 96372; 96374; J1950; J2405

== ENCOUNTER 2024-07-24 10:31 | Day surgery (SDC) | payer OTHER ==
[2024-07-24 11:40] LABS: BASO % 0.8 % (0-2.0); HEMATOCRIT 39.2 % (32.4-45.2); HEMOGLOBIN 13.6 GM/dL (10.7-15.3); LYMPH % 20.5 % (8-40); MCH 27.9 pg (25.7-33.7); MCHC 34.6 g/dl (32.0-36.0); MEAN CELL VOLUME 80.5 fl (80-96); MEAN PLT VOLUME 9.5 fl (7.5-11.1); MONO % 6.1 % (3.8-10.2); NEUT % 70.6 % (42.8-82.8); PLATELET COUNT 230 10^3/uL (134-434); RBC 4.87 M/mm3 (3.60-5.2); RDW 14.2 % (11.6-15.6); WHITE BLOOD COUNT 6.3 K/mm3 (4.0-10.0)
[2024-07-24] MEDS: ONDANSETRON INJECTION 4 MG in SODIUM CHLORIDE 50 ML IVPB ONE (11:51)
[2024-07-24] MEDS: SODIUM CHLORIDE 500 ML IV ONE (11:51)
[2024-07-24 12:09] LABS: CHLORIDE 103 mmol/L (98-107); POTASSIUM 4.2 mmol/L (3.5-5.1); SODIUM 135 mmol/L (136-145)
[2024-07-24 12:11] LABS: ALBUMIN 3.7 g/dl (3.4-5.0); ANION GAP 6 mmol/L (4-13); BLOOD UREA NITROGEN 14.1 mg/dL (7-18); CALCIUM 8.6 mg/dL (8.5-10.1); CO2 26 mmol/L (21-32); GLUCOSE,RANDOM 156 mg/dL (74-106); MAGNESIUM 1.9 mg/dL (1.8-2.4)
[2024-07-24 12:14] LABS: CREATININE 0.8 mg/dL (0.55-1.3); SGOT/AST 10 U/L (15-37); SGPT/ALT 24 U/L (13-61)
[2024-07-24 12:16] LABS: BILIRUBIN,TOTAL 0.5 mg/dL (0.2-1)
[2024-07-24 12:17] LABS: ALK PHOS 124 U/L (45-117)
[2024-07-24] MEDS: LEUPROLIDE ACETATE 3.75 MG/KIT KIT IM ONE (13:03)
[2024-07-24 17:23] VITALS: RESP 20; TEMP 97.8
[2024-07-25 09:14] VITALS: BP 145/84; PULSE 82
[2024-07-25 12:08] LABS: CARCINOEMBRYONIC ANTIGEN 1.2 ng/mL (0.0-4.7)
== END 2024-07-24 13:20 | disposition home or self-care (01) ==
LOC: JONCCHEMO 10:31 → J7W 10:33 → JONCCHEMO 13:20
PROVIDERS: ATTEND Internal Medicine Hematology & Oncology
PROC: 3E01305 Introduction of Other Antineoplastic into Subcutaneous Tissue, Percutaneous Approach (ICD-10-PCS; principal; 2024-07-24)
PROC: 3E033GC Introduction of Other Therapeutic Substance into Peripheral Vein, Percutaneous Approach (ICD-10-PCS; 2024-07-24)
DX: Z51.11 Encounter for antineoplastic chemotherapy (principal); C50.411 Malignant neoplasm of upper-outer quadrant of right female breast; Z17.0 Estrogen receptor positive status [ER+]
CPT/HCPCS: 36415; 80053; 82306; 82378; 82607; 82670; 83735; 85025; 86300; 96365; 96402; J1950; J2405

== ENCOUNTER 2024-08-21 10:09 | Day surgery (SDC) | payer OTHER ==
[2024-08-21] MEDS: SODIUM CHLORIDE 500 ML IV ONE (10:45)
[2024-08-21] MEDS: ONDANSETRON INJECTION 4 MG in SODIUM CHLORIDE 50 ML IVPB ONE (10:45)
[2024-08-21 10:53] LABS: ABSOLUTE IMMATURE GRANULOCYTES 0.06 x10^3/uL (0.0-0.031); BASOPHILS # 0.07 x10^3/uL (0.01-0.08); EOSINOPHIL % 1.6 % (0.7-5.8); EOSINOPHILS # 0.13 x10^3/uL (0.04-0.36); HEMATOCRIT 45.5 % (34.1-44.9); HEMOGLOBIN 14.8 g/dL (11.2-15.7); MCHC 32.5 g/dl (32.2-35.5); MEAN CELL VOLUME 80.1 fl (79.4-94.8); MONOCYTE % 6.3 % (4.7-12.5); PLATELET COUNT 274 x10^3/uL (182-369); RDW 13.4 % (12.3-16.6)
[2024-08-21 11:20] LABS: CHLORIDE 98 mmol/L (98-107); POTASSIUM 4.1 mmol/L (3.5-5.1); SODIUM 135 mmol/L (136-145)
[2024-08-21 11:22] LABS: ALBUMIN 4.3 g/dl (3.4-5.0); ANION GAP 8 mmol/L (4-13); BLOOD UREA NITROGEN 13.6 mg/dL (7-18); CALCIUM 9.9 mg/dL (8.5-10.1); CO2 29 mmol/L (21-32)
[2024-08-21 11:23] LABS: GLUCOSE,RANDOM 205 mg/dL (74-106)
[2024-08-21 11:25] LABS: CREATININE 0.8 mg/dL (0.55-1.3); SGOT/AST 14 U/L (15-37); SGPT/ALT 26 U/L (13-61)
[2024-08-21 11:27] LABS: BILIRUBIN,TOTAL 0.5 mg/dL (0.2-1); TOT PROT 7.9 g/dl (6.4-8.2)
[2024-08-21 11:28] LABS: ALK PHOS 134 U/L (45-117)
[2024-08-21] MEDS: LEUPROLIDE ACETATE 3.75 MG/KIT KIT IM ONE (11:41)
[2024-08-21 18:01] VITALS: TEMP 98
[2024-08-21 18:04] VITALS: BP 146/76; PULSE 72; RESP 18
[2024-08-22 08:07] LABS: CARCINOEMBRYONIC ANTIGEN 1.5 ng/mL (0.0-4.7)
== END 2024-08-21 12:00 | disposition home or self-care (01) ==
LOC: JONCCHEMO 10:09
PROVIDERS: ATTEND Internal Medicine Hematology & Oncology
PROC: 3E013GC Introduction of Other Therapeutic Substance into Subcutaneous Tissue, Percutaneous Approach (ICD-10-PCS; principal; 2024-08-21)
PROC: 3E033GC Introduction of Other Therapeutic Substance into Peripheral Vein, Percutaneous Approach (ICD-10-PCS; 2024-08-21)
DX: C50.411 Malignant neoplasm of upper-outer quadrant of right female breast (principal); Z17.0 Estrogen receptor positive status [ER+]
CPT/HCPCS: 36415; 80053; 82306; 82378; 82607; 82670; 83735; 85025; 86300; 96365; 96372; J1950; J2405

== ENCOUNTER 2024-11-13 10:25 | Day surgery (SDC) | payer OTHER ==
[2024-11-13 10:57] LABS: ABSOLUTE IMMATURE GRANULOCYTES 0.05 x10^3/uL (0.0-0.031); BASOPHILS # 0.05 x10^3/uL (0.01-0.08); EOSINOPHIL % 1.7 % (0.7-5.8); EOSINOPHILS # 0.13 x10^3/uL (0.04-0.36); MCHC 31.6 g/dl (32.2-35.5); MEAN CELL VOLUME 81.5 fl (79.4-94.8); MEAN PLT VOLUME 11.5 fl (9.4-12.3); MONOCYTE # 0.49 x10^3/uL (0.24-0.86); MONOCYTE % 6.6 % (4.7-12.5); RDW 13.8 % (12.3-16.6)
[2024-11-13] MEDS ORDERED: ONDANSETRON INJECTION 4 MG in SODIUM CHLORIDE 50 ML IVPB ONE (11:00)
[2024-11-13] MEDS: ONDANSETRON 4 MG/2 ML VIAL IVPUSH ONE (11:01)
[2024-11-13] MEDS: SODIUM CHLORIDE 500 ML IV ONE (11:02)
[2024-11-13 11:42] LABS: CO2 28 mmol/L (21-32); GLUCOSE,RANDOM 146 mg/dL (74-106)
[2024-11-13 11:45] LABS: CREATININE 0.9 mg/dL (0.55-1.3); SGOT/AST 16 U/L (15-37); SGPT/ALT 30 U/L (13-61)
[2024-11-13 11:47] LABS: TOT PROT 7.7 g/dl (6.4-8.2)
[2024-11-13 11:48] LABS: ALK PHOS 128 U/L (45-117)
[2024-11-13] MEDS: LEUPROLIDE ACETATE 3.75 MG/KIT KIT IM ONE (12:33)
[2024-11-13 14:41] VITALS: TEMP 98.3
[2024-11-13 14:43] VITALS: BP 148/80; PULSE 69; RESP 18
[2024-11-14 16:11] LABS: LUTEINIZING HORMONE < 0.3 mIU/mL (.)
== END 2024-11-13 12:45 | disposition home or self-care (01) ==
LOC: JONCCHEMO 10:25 → J7W 10:34 → JONCCHEMO 12:45
PROVIDERS: ATTEND Internal Medicine Hematology & Oncology
PROC: 3E033GC Introduction of Other Therapeutic Substance into Peripheral Vein, Percutaneous Approach (ICD-10-PCS; principal; 2024-11-13)
PROC: 3E013GC Introduction of Other Therapeutic Substance into Subcutaneous Tissue, Percutaneous Approach (ICD-10-PCS; 2024-11-13)
DX: C50.411 Malignant neoplasm of upper-outer quadrant of right female breast (principal)
CPT/HCPCS: 36415; 80053; 82306; 82378; 82607; 82670; 83001; 83002; 83735; 85025; 86300; 96365; 96372; J1950